=== PATIENT | male | born 1960 | race Caucasian/White ===

== ENCOUNTER 2021-12-26 12:45 | Emergency (ER) | payer OTHER, SELFPAY | END 2021-12-26 14:22 | disposition left against medical advice (07) | PROVIDERS: Emergency Provider Emergency Medicine; PCP Internal Medicine | DX: R10.9 Unspecified abdominal pain (principal) ==

== ENCOUNTER 2021-12-26 15:01 | Inpatient (IN) | payer OTHER, SELFPAY ==
--- NOTE | ~2021-12-26 | CT_ITS ---
EXAMINATION: CT ABDOMEN AND PELVIS WITHOUT CONTRAST CLINICAL INFORMATION: Severe abdominal pain, question diverticulitis COMPARISON: MRI lumbar spine and pelvis 11/12/2011 TECHNIQUE: Multidetector volumetric imaging was performed from the superior aspect of the liver through the pubic symphysis. Sagittal and coronal reformatted images were obtained on the technologist's workstation. This CT examination was performed using dose optimization techniques as appropriate, variously including the following: *Automated exposure control *Adjustment of mA and/or kV according to patient size (this includes techniques or standardized protocols for targeted exams where dose is matched to indication/reason for exam; i.e. extremities or head) *Use of iterative reconstruction technique DLP: 563 mGy-cm FINDINGS: LUNG BASES: Unremarkable. ABDOMINAL AND PELVIC WALL: Unremarkable. LIVER AND BILIARY TREE: Unremarkable. GALLBLADDER: Unremarkable. PANCREAS: Peripancreatic inflammatory fat stranding suggesting acute pancreatitis. No organized fluid collection. No pancreatic duct dilatation. Lack of intravenous contrast limits assessment for pancreatic enhancement. SPLEEN: Unremarkable. ADRENAL GLANDS: Unremarkable. KIDNEYS AND URETERS: Unremarkable. GASTROINTESTINAL TRACT: Wall thickening involving the third and fourth portions of the duodenum. Colonic diverticulosis without evidence of diverticulitis. Normal appendix. VASCULAR: Circumaortic left renal vein. LYMPH NODES/PERITONEUM: No lymphadenopathy. FREE FLUID: None. BLADDER: Unremarkable. PELVIC VISCERA: Unremarkable. OSSEOUS STRUCTURES: Serpiginous, sclerotic lesion in the left proximal femur possibly reflective of a enchondroma. CT/CT abdomen pelvis wo con IMPRESSION: Peripancreatic inflammatory fat stranding suggesting acute pancreatitis, recommend correlation with lipase. Lack of intravenous contrast limits assessment for pancreatic enhancement. No organized fluid collection. Wall thickening involving the third and fourth portions of the duodenum, presumed reactive in the setting of pancreatitis however if lipase is negative duodenitis would be an alternative primary consideration.
--- NOTE | ~2021-12-26 | XR_ITS ---
EXAMINATION: XR CHEST CLINICAL INFORMATION: Leukocytosis COMPARISON: Chest radiograph 05/30/2012 TECHNIQUE: Frontal view of the chest was obtained. FINDINGS: The heart and pulmonary vessels appear normal. The lungs are hypoinflated compared to the prior study. Some bibasilar atelectasis is seen. No consolidations, effusions or suspicious lung masses are present. XR/XR chest 1V IMPRESSION: No acute intrathoracic disease
[2021-12-26 15:43] VITALS: BP 141/104; PULSE 140; RESP 18; TEMP 37.2; O2SAT 99; BMI 26.3
[2021-12-26 20:10] LABS: MANUAL DIFF FLAG NO
[2021-12-26 20:12] LABS: Basophils Percent Auto 0.1 % (0-2); Eosinophils Percent Auto 0.1 % (0-4); Hematocrit 48.9 % (42.0-52.0); Hemoglobin 17.2 g/dl (14.0-18.0); Imm Gran Abs Auto 0.08 X10*3/uL (0.00-0.03); Imm Gran Pct Auto 0.4 % (0.0-0.4); Lymphocytes Absolute Auto 1.6 X10*3/uL (1.2-4.9); Lymphocytes Percent Auto 8.3 % (20-40); Mean Corpuscular HGB Conc 35.2 g/dl (31.0-36.0); Mean Corpuscular Hemoglobin 33.4 pg (27.0-33.0); Monocytes Absolute Auto 1.4 X10*3/uL (0.1-1.2); Monocytes Percent Auto 7.3 % (2-11); Neutrophils Absolute Auto 15.7 x10*3/uL (2.0-8.3); Neutrophils Percent Auto 83.8 % (45-73); Platelet Count 218 X10*3/uL (160-400); Red Blood Count 5.15 X10*6/uL (4.60-5.80); Red Cell Distribution Width 12.7 % (11.0-16.0); White Blood Count 18.7 X10*3/uL (4.8-10.8)
[2021-12-26 20:27] LABS: COVID-19 Test Negative (Negative); IDNOW Serial# 55D5AD1C
[2021-12-26 20:28] LABS: Alanine Aminotransferase 73 U/L (0-40); Albumin Level 4.7 g/dL (3.5-5.0); Alkaline Phosphatase 133 U/L (39-117); Anion Gap 14 (12-20); Aspartate Amino Transferase 39 U/L (5-37); Bilirubin Total 2.3 mg/dL (0.0-1.0); Blood Urea Nitrogen 12 mg/dL (9-16); Calcium 9.3 mg/dL (8.4-10.2); Carbon Dioxide 28 mmol/L (22-29); Chloride 100 mmol/L (96-108); Creatinine Clr Calc Pharmacy 91.5; Estimated Glomerular Filt Rate > 60; Glucose Random 122 mg/dL (60-115); Potassium 4.3 mmol/L (3.3-5.1); Sodium 138 mmol/L (135-145); Total Protein 8.6 g/dL (6.5-8.0)
[2021-12-26 20:35] LABS: Lactic Acid 2.6 mmol/L (0.5-2.0)
--- NOTE | 2021-12-26 20:48 | ED.ABDPAIN ---
HPI - Abdominal Pain General Chief Complaint: Abdominal Pain Stated Complaint: Abd pain Time Seen by Provider: 12/26/21 20:46 Source: patient Mode of arrival: ambulatory Limitations: no limitations History of Present Illness HPI narrative: Patient no significant abdominal complaints in the past except for umbilical hernia surgery been having diffuse abdominal pain for last 2 days feel bloated not moving his bowels or gas does not feel hungry feel nauseated vomited 2-3 times today never had similar following the past no fever or chills no history of ulcer or pancreas involvement no history of kidney stones no urinary complaints patient drinks beer 3-4 cans a day Related Data Home Medications Medication Instructions Recorded Confirmed albuterol sulfate 90 mcg/actuation 0 mcg inhalation 12/26/21 aerosol inhaler buprenorphine 8 mg-naloxone 2 mg 10 mg sublingual DAILY 12/26/21 sublingual film montelukast 10 mg tablet 10 mg PO BEDTIME 12/26/21 Allergies Allergy/AdvReac Type Severity Reaction Status Date / Time aspirin [ASPIRIN] Allergy Intermediate RASH/GI Unverified 12/26/21 14:30 UPSET Review of Systems Review of Systems Yes all other systems are reviewed and are negative [facility] Social History Social History Alcohol intake: current Alcohol intake frequency: 0-2 drinks per day Patient Tobacco Use Status: Current everyday Tobacco user Smoked in Last 30 Days: Yes Use of substances other than those prescribed or required for medical reasons: No Advance Directives: No Advance Directives Information Provided: No Physical Exam ED Vital Signs: Vital Signs - 24 hr 12/26/21 15:43 12/26/21 20:50 12/26/21 22:26 Temperature 99.0 F 98.0 F 99.1 F Pulse Rate 140 H 122 H 93 Respiratory Rate 18 24 H 18 Blood Pressure 141/104 H 175/109 H 176/101 H Pulse Oximetry 99 97 98 Oxygen Delivery Method Room Air Room Air Room Air BMI result Body Mass Index 26.3 Appearance: Alert. Oriented X3. No acute distress. Eyes: No pallor or icterus ENT: Pharynx normal. Oral Mucosa moist Neck: Normal inspection. Neck supple. CVS: Normal heart rate and rhythm. Pulses normal. Respiratory: No respiratory distress. Equal air entry bilateral, no wheezing/rales/rhonchi Abdomen: Gaseous distended hyperactive bowel sounds diffusely tender no guarding or rebound tenderness no mass palpable, no CVA tenderness Skin: Skin warm and dry. Normal skin color. Normal skin turgor. Extremities: No lower extremity edema. No calf tenderness Neuro: Oriented X 3. MDM - Abdominal Pain MDM Narrative Medical decision making narrative: Patient's CT scan showed acute pancreatitis likely from use of alcohol patient triglyceride level is normal CT scan showed inflamed pancreas without any significant fluid collections. Will admit patient for acute pancreatitis Lab Data Attestation: I reviewed the patient's lab results. Result diagrams: 12/26/21 20:04 12/26/21 20:04 Labs: Lab Results 12/26/21 12/26/21 12/26/21 Range/Units 20:04 20:04 20:04 WBC 18.7 H (4.8-10.8) X10*3/uL RBC 5.15 (4.60-5.80) X10*6/uL Hgb 17.2 (14.0-18.0) g/dl Hct 48.9 (42.0-52.0) % MCV 95.0 (80.0-98.0) fL MCH 33.4 H (27.0-33.0) pg MCHC 35.2 (31.0-36.0) g/dl RDW 12.7 (11.0-16.0) % Plt Count 218 (160-400) X10*3/uL MPV 10.0 (9.4-12.4) fL Immature Gran % (Auto) 0.4 (0.0-0.4) % Neut % (Auto) 83.8 H (45-73) % Lymph % (Auto) 8.3 L (20-40) % [place] % (Auto) 7.3 (2-11) % Eos % (Auto) 0.1 (0-4) % Baso % (Auto) 0.1 (0-2) % Lymph # (Auto) 1.6 (1.2-4.9) X10*3/uL [place] # (Auto) 1.4 H (0.1-1.2) X10*3/uL Eos # (Auto) 0.0 (0.0-0.4) X10*3/uL Baso # (Auto) 0.0 (0.0-0.2) X10*3/uL Abs Immat Gran (auto) 0.08 H (0.00-0.03) X10*3/uL Absolute Neuts (auto) 15.7 H (2.0-8.3) x10*3/uL Absolute Nucleated RBC 0.000 (0.0-0.012) X10*3/uL Nucleated RBC % (auto) 0.0 (0.0-0.2) /100WBC Sodium 138 (135-145) mmol/L Potassium 4.3 (3.3-5.1) mmol/L Chloride 100 (96-108) mmol/L Carbon Dioxide 28 (22-29) mmol/L Anion Gap 14 (12-20) BUN 12 (9-16) mg/dL Creatinine 0.83 (0.5-1.4) mg/dL Estim Creat Clear Calc 91.5 Estimated GFR > 60 Random Glucose 122 H (60-115) mg/dL Lactic Acid 2.6 H* (0.5-2.0) mmol/L Calcium 9.3 (8.4-10.2) mg/dL Total Bilirubin 2.3 H (0.0-1.0) mg/dL AST 39 H (5-37) U/L ALT 73 H (0-40) U/L Alkaline Phosphatase 133 H (39-117) U/L Total Protein 8.6 H (6.5-8.0) g/dL Albumin 4.7 (3.5-5.0) g/dL Triglycerides 135 mg/dL Lipase 192 H (8-78) U/L COVID-19 (FRANCISCO) (Negative) COVID-19 Clin Com 12/26/21 Range/Units 20:04 WBC (4.8-10.8) X10*3/uL RBC (4.60-5.80) X10*6/uL Hgb (14.0-18.0) g/dl Hct (42.0-52.0) % MCV (80.0-98.0) fL MCH (27.0-33.0) pg MCHC (31.0-36.0) g/dl RDW (11.0-16.0) % Plt Count (160-400) X10*3/uL MPV (9.4-12.4) fL Immature Gran % (Auto) (0.0-0.4) % Neut % (Auto) (45-73) % Lymph % (Auto) (20-40) % [place] % (Auto) (2-11) % Eos % (Auto) (0-4) % Baso % (Auto) (0-2) % Lymph # (Auto) (1.2-4.9) X10*3/uL [place] # (Auto) (0.1-1.2) X10*3/uL Eos # (Auto) (0.0-0.4) X10*3/uL Baso # (Auto) (0.0-0.2) X10*3/uL Abs Immat Gran (auto) (0.00-0.03) X10*3/uL Absolute Neuts (auto) (2.0-8.3) x10*3/uL Absolute Nucleated RBC (0.0-0.012) X10*3/uL Nucleated RBC % (auto) (0.0-0.2) /100WBC Sodium (135-145) mmol/L Potassium (3.3-5.1) mmol/L Chloride (96-108) mmol/L Carbon Dioxide (22-29) mmol/L Anion Gap (12-20) BUN (9-16) mg/dL Creatinine (0.5-1.4) mg/dL Estim Creat Clear Calc Estimated GFR Random Glucose (60-115) mg/dL Lactic Acid (0.5-2.0) mmol/L Calcium (8.4-10.2) mg/dL Total Bilirubin (0.0-1.0) mg/dL AST (5-37) U/L ALT (0-40) U/L Alkaline Phosphatase (39-117) U/L Total Protein (6.5-8.0) g/dL Albumin (3.5-5.0) g/dL Triglycerides mg/dL Lipase (8-78) U/L COVID-19 ([facility]ISCO) Negative (Negative) COVID-19 Clin Com See Note Discharge Plan Discharge Clinical Impression: Pancreatitis Patient Disposition: Admitted As Inpatient
[2021-12-26 20:50] VITALS: BP 175/109; PULSE 122; RESP 24; TEMP 36.7; O2SAT 97
[2021-12-26 21:13] LABS: Lipase 192 U/L (8-78)
[2021-12-26] MEDS: Piperacillin Sodium/Tazobactam 3.375 GM in 0.9 % Sodium Chloride 50 ML IV (21:24)
[2021-12-26] MEDS: 0.9 % Sodium Chloride 1,000 ML 999 ML IV ×2 (21:24→22:21)
--- NOTE | 2021-12-26 21:29 | PC.NURSE ---
Sending pt.'s BC x2 for primary RN Danni. BC labels unavailable. MD Megan notified to re-order cultures so labels are able to be printed
[2021-12-26 22:09] LABS: Reflex Lactate? Lactic Acid Added
[2021-12-26] MEDS: Ketorolac Tromethamine 30 MG/ML VIAL IVPUSH (22:18)
[2021-12-26 22:26] VITALS: BP 176/101; PULSE 93; RESP 18; TEMP 37.3; O2SAT 98
[2021-12-27 00:21] LABS: Triglycerides 135 mg/dL
--- NOTE | 2021-12-27 00:49 | PM.IMHP ---
History of Present Illness Date of Service: 12/27/21 Chief Complaint: Abdominal pain 61-year-old male with a past medical history of asthma, alcohol abuse, history of opiate dependence on Suboxone presented to the hospital today with a chief complaint of abdominal pain. Patient reports that over the past 2 days he has been having abdominal pain, diffuse in nature, associated nausea; denies any vomiting or diarrhea. Denies any fever chills cough or sputum production. Denies any urinary symptoms. Reports he has been drinking 4-5 beers of alcohol every day. Last drink was on last Saturday. Denies any concerns for withdrawal. Denies any prior history of withdrawals. Review of all other systems is negative except mentioned above ER course: Per ER team patient noted to have diffuse abdominal tenderness; CT scan showed pancreatitis; also noted to have mildly elevated lipase. Admitted for further management. [facility] Pertinent family history: Parents Social History Alcohol intake: current Alcohol intake frequency: 0-2 drinks per day Patient Tobacco Use Status: Current everyday Tobacco user Smoked in Last 30 Days: Yes Use of substances other than those prescribed or required for medical reasons: No Advance Directives: No Advance Directives Information Provided: No Meds Allergies Allergy/AdvReac Type Severity Reaction Status Date / Time aspirin [ASPIRIN] Allergy Intermediate RASH/GI Unverified 12/26/21 14:30 UPSET Home Medications Medication Instructions Recorded Confirmed Last Taken Type albuterol sulfate 90 mcg/actuation 0 mcg inhalation 12/26/21 Unknown History aerosol inhaler buprenorphine 8 mg-naloxone 2 mg 10 mg sublingual DAILY 12/26/21 Unknown History sublingual film montelukast 10 mg tablet 10 mg PO BEDTIME 12/26/21 Unknown History Physical Exam Vital Signs and Narrative: Vital Signs: Last Vital Signs Temp 99.1 F 12/26/21 22:26 Pulse 93 12/26/21 22:26 Resp 18 12/26/21 22:26 BP 176/101 H 12/26/21 22:26 Pulse Ox 98 12/26/21 22:26 O2 Del Method 12/26/21 22:26 BMI result Body Mass Index 26.3 Gen: Appears be in no acute distress HEENT: NCAT, Moist mucosa. Pulmonary: Vesicular breath sounds, fair air entry CVS: Normal S1-S2 Abdomen: BS+, Soft, mildly tender diffusely; no guarding no rigidity Extremities: Warm well perfused Neuro: Alert and awake. Results Labs CBC and Chem 7: 12/26/21 20:04 12/26/21 20:04 Labs: Laboratory Results - last 24 hr 12/26/21 12/26/21 12/26/21 20:04 20:04 20:04 MCV 95.0 MCH 33.4 H MCHC 35.2 RDW 12.7 Plt Count 218 MPV 10.0 Immature Gran % (Auto) 0.4 Neut % (Auto) 83.8 H Lymph % (Auto) 8.3 L [place] % (Auto) 7.3 Eos % (Auto) 0.1 Baso % (Auto) 0.1 Lymph # (Auto) 1.6 [place] # (Auto) 1.4 H Eos # (Auto) 0.0 Baso # (Auto) 0.0 Abs Immat Gran (auto) 0.08 H Absolute Neuts (auto) 15.7 H Absolute Nucleated RBC 0.000 Nucleated RBC % (auto) 0.0 Anion Gap 14 Estim Creat Clear Calc 91.5 Estimated GFR > 60 Random Glucose 122 H Lactic Acid 2.6 H* Calcium 9.3 Total Bilirubin 2.3 H AST 39 H ALT 73 H Alkaline Phosphatase 133 H Total Protein 8.6 H Albumin 4.7 Triglycerides 135 Lipase 192 H COVID-19 ([facility]IS[facility]) COVID-19 Clin Com 12/26/21 20:04 MCV MCH MCHC RDW Plt Count MPV Immature Gran % (Auto) Neut % (Auto) Lymph % (Auto) [place] % (Auto) Eos % (Auto) Baso % (Auto) Lymph # (Auto) [place] # (Auto) Eos # (Auto) Baso # (Auto) Abs Immat Gran (auto) Absolute Neuts (auto) Absolute Nucleated RBC Nucleated RBC % (auto) Anion Gap Estim Creat Clear Calc Estimated GFR Random Glucose Lactic Acid Calcium Total Bilirubin AST ALT Alkaline Phosphatase Total Protein Albumin Triglycerides Lipase COVID-19 ([facility]) Negative COVID-19 Clin Com See Note Imaging Radiologist's Impressions: Impressions Abdomen/Pelvis CT 12/26/21 21:23 IMPRESSION: Peripancreatic inflammatory fat stranding suggesting acute pancreatitis, recommend correlation with lipase. Lack of intravenous contrast limits assessment for pancreatic enhancement. No organized fluid collection. Wall thickening involving the third and fourth portions of the duodenum, presumed reactive in the setting of pancreatitis however if lipase is negative duodenitis would be an alternative primary consideration. Chest X-Ray 12/27/21 00:23 IMPRESSION: No acute intrathoracic disease Assessment and Plan (1) Pancreatitis: Status: Acute Plan 61M with Hx Alcohol abuse, Asthma, Opiate dependence p/w Nausea/vomiting/Abd paiin. Noted Elevated Lipase, CT abd- showed pancreatitis. Pancreatitis: Likely in the setting of Alcohol use NPO IV Fluids Pain control Alcohol abuse:CIWA protocol with Ativan. Thiamine, Folate, Multivitamins. Transaminitis: Likely from alcohol abuse. Trend Liver enzymes. Will also obtian hepatitis panel. Hx Opiate abuse: pt on Suboxone. Addiction medicine consult. DVT ppx: [facility] Code Status: Full code. Quality Stroke Does the patient have a stroke diagnosis?: No VTE Prior VTE?: No VTE Risk Level:: Medical - moderate - high VTE Device Contraindication: Treatment Not Indicated VTE Drug Contraindication: N/A - Med Ordered
[2021-12-27 01:42] VITALS: BP 162/93; PULSE 96; RESP 18; TEMP 37.3; O2SAT 99
[2021-12-27 01:49] LABS: ~Lactic Acid-LAB USE ONLY 2.1 mmol/L (0.5-2.0)
[2021-12-27] MEDS: HYDROmorphone HCl 1 MG/ML SYRINGE 0.5 MG IVPUSH ×3 (02:40→15:22)
[2021-12-27] MEDS: Heparin Sodium,Porcine 5,000 UNIT/ML VIAL 5000 UNIT SUBCUT (02:40)
[2021-12-27 03:24] LABS: Reflex Lactate? 2 Y
[2021-12-27] MEDS: Dextrose 5 % and 0.45 % NaCl 1,000 ML 80 ML IVCONT (03:30)
[2021-12-27 04:00] VITALS: BP 139/84; PULSE 97; RESP 18; TEMP 36.7; O2SAT 98
[2021-12-27 04:17] LABS: Basophils Percent Auto 0.1 % (0-2); Eosinophils Percent Auto 0.1 % (0-4); Hematocrit 41.8 % (42.0-52.0); Hemoglobin 14.6 g/dl (14.0-18.0); Imm Gran Abs Auto 0.08 X10*3/uL (0.00-0.03); Imm Gran Pct Auto 0.5 % (0.0-0.4); Lymphocytes Absolute Auto 1.4 X10*3/uL (1.2-4.9); Lymphocytes Percent Auto 9.2 % (20-40); MANUAL DIFF FLAG NO; Mean Corpuscular HGB Conc 34.9 g/dl (31.0-36.0); Mean Corpuscular Hemoglobin 33.3 pg (27.0-33.0); Mean Corpuscular Volume 95.2 fL (80.0-98.0); Monocytes Absolute Auto 1.5 X10*3/uL (0.1-1.2); Monocytes Percent Auto 9.7 % (2-11); Neutrophils Absolute Auto 12.3 x10*3/uL (2.0-8.3); Neutrophils Percent Auto 80.4 % (45-73); Platelet Count 162 X10*3/uL (160-400); Red Blood Count 4.39 X10*6/uL (4.60-5.80); Red Cell Distribution Width 12.6 % (11.0-16.0); White Blood Count 15.3 X10*3/uL (4.8-10.8)
[2021-12-27 04:26] LABS: ~Lactic Acid-LAB USE ONLY 0.8 mmol/L (0.5-2.0)
[2021-12-27 04:29] LABS: Anion Gap 10 (12-20); Blood Urea Nitrogen 9 mg/dL (9-16); Calcium 8.4 mg/dL (8.4-10.2); Carbon Dioxide 27 mmol/L (22-29); Chloride 105 mmol/L (96-108); Creatinine Clr Calc Pharmacy 104.1; Estimated Glomerular Filt Rate > 60; Glucose Random 116 mg/dL (60-115); Potassium 3.9 mmol/L (3.3-5.1); Sodium 138 mmol/L (135-145)
[2021-12-27 05:31] LABS: HBS Num1 > 1000.00 mIU/mL (0-7.99); HBsAGNum1 0.19 S/CO (0.00-0.99); Hepatitis B Surface Antigen Negative (Negative); ~HepC Num1 14.31 S/CO (0.00-0.79); ~Hepatitis B Surface Antibody REACTIVE (Nonreactive); ~Hepatitis C Antibody Reactive (Nonreactive)
[2021-12-27 06:16] LABS: Hepatitis A Antibody IgM 0.76 Index (0-0.79); ~Hepatitis A Antibody IgM Nonreactive (Nonreactive)
[2021-12-27 06:17] LABS: HBc Num2 7.92 S/CO; HBc Num3 7.96 S/CO; Hepatitis B Core Antibody Reactive (Nonreactive)
--- NOTE | 2021-12-27 07:09 | PHA.MEDREC ---
Pharmacy Consult ? Medication Reconciliation Pharmacy has completed the medication reconciliation.
[2021-12-27 07:53] VITALS: BP 180/97; PULSE 109; RESP 20; TEMP 37; O2SAT 97
[2021-12-27] MEDS: Famotidine 20 MG TABLET PO ×2 (09:00→20:29)
[2021-12-27] MEDS: Folic Acid 1 MG TABLET PO (09:00)
[2021-12-27] MEDS: Enoxaparin Sodium 40 MG/0.4 ML SYRINGE SUBCUT (09:00)
[2021-12-27] MEDS: Multivitamin TABLET 1 TAB PO (09:00)
[2021-12-27] MEDS: Thiamine HCL 100 MG TABLET PO (09:00)
[2021-12-27] MEDS: 0.9 % Sodium Chloride Flush 3 ML SYRINGE IVFLUSH ×3 (09:01→20:30)
[2021-12-27] MEDS: Lactated Ringers 1,000 ML 150 ML IVCONT ×3 (09:01→21:33)
--- NOTE | 2021-12-27 09:28 | MHC.CM.PN ---
CM met with Patient at bedside and addressed IMM with him, providing him with the original and placing a copy on the chart. Patient lives alone in an apartment and he required no DME [employer] APPR[employer]. Patient receives his Suboxone through [facility] ([address] in [place]) and he has a history of Opiate Dependence and ETOH. Patient may benefit from a care Team Consult. Home/resume Suboxone is the goal and CM has initiated and will follow for dc planning.PCP is DR. Gabriel Burrows and Patient received [employer]/COVID VAX and [employer] Booster X1.
[2021-12-27 11:41] VITALS: BP 181/96; PULSE 92; RESP 18; TEMP 37.2; O2SAT 97
--- NOTE | 2021-12-27 12:38 | P.PNIM_ITS ---
Subjective Subjective Date of Service: 12/27/21 Interval History: cc: abd pain interval history: ongoing abd pain, wants to advance to clears Cardiovascular Cardiovascular: Reports no additional cardiovascular complaints Respiratory Respiratory: Reports no additional respiratory complaints Physical Exam Vital Signs: Vital Signs: Last Vital Signs Temp 98.9 F 12/27/21 11:41 Pulse 92 12/27/21 11:41 Resp 18 12/27/21 11:41 BP 181/96 H 12/27/21 11:41 Pulse Ox 97 12/27/21 11:41 O2 Del Method 12/27/21 11:41 BMI result Body Mass Index 26.3 General: AO X 3, no acute distress Resp: CTA bilateral, no accessory muscles used CVS: S1,S2,RRR GI: soft, epigastric tender, non distended Neuro: motor grossly intact, alert Psych: appropriate affect, appropriate insight Objective Data Active Medications Acetaminophen (Acetaminophen 325 Mg Tablet) 650 mg PO Q6H PRN PRN Reason: Pain, Mild (Pain Scale 1-3) Albuterol/Ipratropium (Albuterol/Iprat 2.5/0.5mg 3 Ml Ampul.Neb) 3 ml INHALE RQ4H PRN PRN Reason: Shortness of Breath/Wheezing Buprenorphine/Naloxone (Buprenorphine/Naloxone 8/2 Mg Film) 1 film SUBLINGUAL DAILY [facility] Enoxaparin Sodium (Enoxaparin Sodium 40 Mg/0.4 Ml Syringe) 40 mg SUBCUT Q24H [facility] Last Admin: 12/27/21 09:00 Dose: 40 mg Documented By: GALDINO Famotidine (Famotidine 20 Mg Tablet) 20 mg PO BID [facility] Last Admin: 12/27/21 09:00 Dose: 20 mg Documented By: GALDINO Folic Acid (Folic Acid 1 Mg Tablet) 1 mg PO DAILY [facility] Stop: 12/30/21 08:59 Last Admin: 12/27/21 09:00 Dose: 1 mg Documented By: GALDINO Hydromorphone HCl (Hydromorphone Hcl 1 Mg/Ml Syringe) 0.5 mg IVPUSH Q4H PRN; Protocol PRN Reason: Pain, Severe (Pain Scale 7-10) Last Admin: 12/27/21 09:15 Dose: 0.5 mg Documented By: GALDINO Lactated Ringer's (Lr) 1,000 mls @ 150 mls/hr IVCONT .Q6H40M [facility] Last Admin: 12/27/21 09:01 Dose: 150 mls/hr Documented By: GALDINO Lorazepam (Lorazepam 1 Mg Tablet) 1 mg PO Q4H PRN PRN Reason: Breakthrough alcohol withdrawa Stop: 12/31/21 00:46 Melatonin (Melatonin 3 Mg Tablet) 6 mg PO BEDTIME PRN PRN Reason: Insomnia Montelukast Sodium (Montelukast Sodium 10 Mg Tablet) 10 mg PO BEDTIME OPAL Multivitamins/Vitamin C (Multivitamin Tablet) 1 tab PO DAILY [facility] Stop: 12/30/21 08:59 Last Admin: 12/27/21 09:00 Dose: 1 tab Documented By: GALDINO Senna (Sennosides 8.6 Mg Tablet) 17.2 mg PO BEDTIME PRN PRN Reason: Constipation Sodium Chloride (0.9 % Sodium Chloride Flush 3 Ml Syringe) 3 ml IVFLUSH QSHIFT [facility] Last Admin: 12/27/21 09:01 Dose: 3 ml Documented By: GALDINO Thiamine HCl (Thiamine Hcl 100 Mg Tablet) 100 mg PO DAILY [facility] Stop: 12/30/21 08:59 Last Admin: 12/27/21 09:00 Dose: 100 mg Documented By: GALDINO Labs CBC & Chem 7: 12/27/21 04:03 12/27/21 04:03 Labs: Laboratory Results - last 24 hr 12/26/21 12/26/21 12/26/21 20:04 20:04 20:04 MCV 95.0 MCH 33.4 H MCHC 35.2 RDW 12.7 Plt Count 218 MPV 10.0 Immature Gran % (Auto) 0.4 Neut % (Auto) 83.8 H Lymph % (Auto) 8.3 L [place] % (Auto) 7.3 Eos % (Auto) 0.1 Baso % (Auto) 0.1 Lymph # (Auto) 1.6 [place] # (Auto) 1.4 H Eos # (Auto) 0.0 Baso # (Auto) 0.0 Abs Immat Gran (auto) 0.08 H Absolute Neuts (auto) 15.7 H Absolute Nucleated RBC 0.000 Nucleated RBC % (auto) 0.0 Anion Gap 14 Estim Creat Clear Calc 91.5 Estimated GFR > 60 Random Glucose 122 H Lactic Acid 2.6 H* Lactic Acid F/U @ 2Hr Lactic Acid F/U @ 4Hr Calcium 9.3 Total Bilirubin 2.3 H AST 39 H ALT 73 H Alkaline Phosphatase 133 H Total Protein 8.6 H Albumin 4.7 Triglycerides 135 Lipase 192 H COVID-19 ([facility]) COVID-19 Clin Com Hepatitis A IgM Ab Hep Bs Antigen Hep Bs Antibody Hep B Core Total Ab Hep B Core IgM Ab Hepatitis C Ab (EIA) 12/26/21 12/27/21 12/27/21 20:04 01:22 04:03 MCV 95.2 MCH 33.3 H MCHC 34.9 RDW 12.6 Plt Count 162 D MPV 10.0 Immature Gran % (Auto) 0.5 H Neut % (Auto) 80.4 H Lymph % (Auto) 9.2 L [place] % (Auto) 9.7 Eos % (Auto) 0.1 Baso % (Auto) 0.1 Lymph # (Auto) 1.4 [place] # (Auto) 1.5 H Eos # (Auto) 0.0 Baso # (Auto) 0.0 Abs Immat Gran (auto) 0.08 H Absolute Neuts (auto) 12.3 H Absolute Nucleated RBC 0.000 Nucleated RBC % (auto) 0.0 Anion Gap Estim Creat Clear Calc Estimated GFR Random Glucose Lactic Acid Lactic Acid F/U @ 2Hr 2.1 H* Lactic Acid F/U @ 4Hr Calcium Total Bilirubin AST ALT Alkaline Phosphatase Total Protein Albumin Triglycerides Lipase COVID-19 ([place]) Negative COVID-19 Clin Com See Note Hepatitis A IgM Ab Hep Bs Antigen Hep Bs Antibody Hep B Core Total Ab Hep B Core IgM Ab Hepatitis C Ab (EIA) 12/27/21 12/27/21 12/27/21 04:03 04:03 04:03 MCV MCH MCHC RDW Plt Count MPV Immature Gran % (Auto) Neut % (Auto) Lymph % (Auto) [place] % (Auto) Eos % (Auto) Baso % (Auto) Lymph # (Auto) [place] # (Auto) Eos # (Auto) Baso # (Auto) Abs Immat Gran (auto) Absolute Neuts (auto) Absolute Nucleated RBC Nucleated RBC % (auto) Anion Gap 10 L Estim Creat Clear Calc 104.1 Estimated GFR > 60 Random Glucose 116 H Lactic Acid Lactic Acid F/U @ 2Hr Lactic Acid F/U @ 4Hr 0.8 Calcium 8.4 D Total Bilirubin AST ALT Alkaline Phosphatase Total Protein Albumin Triglycerides Lipase COVID-19 ([place]ISCO) COVID-19 Clin Com Hepatitis A IgM Ab Nonreactive Hep Bs Antigen Negative Hep Bs Antibody REACTIVE Hep B Core Total Ab Reactive Hep B Core IgM Ab Cancelled Hepatitis C Ab (EIA) Reactive H Assessment and Plan (1) Pancreatitis: Status: Acute Plan 61M presented with abdominal pain Severe Sirs (no infection) due to etoh pancreatitis change to LR, continue pain control, advance to clears, monitor labs alcohol dependence monitor [facility] hcv outpatient follow up opiate dependnece suboxone hypertension possibly pain related, monitor for now dvt prophyalxis - lovenox full code reason for continued hospitalization:ongoing iv opaites and ivf for pancreatitis Quality Stroke Does the patient have a stroke diagnosis?: No VTE Prior VTE?: No VTE Risk Level:: Medical - moderate - high VTE Device Contraindication: Treatment Not Indicated VTE Drug Contraindication: N/A - Med Ordered
[2021-12-27] MEDS: Buprenorphine/Naloxone 8/2 mg FILM 1 FILM SUBLINGUAL (13:07)
[2021-12-27 15:34] VITALS: BP 160/98; PULSE 81; RESP 20; TEMP 36.1; O2SAT 97
[2021-12-27 19:23] VITALS: BP 180/109; PULSE 87; RESP 20; TEMP 38; O2SAT 98
[2021-12-27] MEDS: Acetaminophen 325 MG TABLET 650 MG PO (20:29)
[2021-12-27] MEDS: Montelukast Sodium 10 MG TABLET PO (20:29)
[2021-12-27] MEDS: Melatonin 3 MG TABLET 6 MG PO (20:30)
[2021-12-28] VITALS (7 sets, daily range): BP systolic 142–189; BP diastolic 82–102; PULSE 75–114; RESP 16–20; TEMP 36.7–37.1; O2SAT 94–98
[2021-12-28] MEDS: Lactated Ringers 1,000 ML 150 ML IVCONT ×4 (03:35→21:36)
[2021-12-28 06:54] LABS: Hematocrit 39.8 % (42.0-52.0); Hemoglobin 14.1 g/dl (14.0-18.0); Mean Corpuscular HGB Conc 35.4 g/dl (31.0-36.0); Mean Corpuscular Volume 95.9 fL (80.0-98.0); Mean Platelet Volume 10.6 fL (9.4-12.4); Platelet Count 162 X10*3/uL (160-400); Red Blood Count 4.15 X10*6/uL (4.60-5.80); Red Cell Distribution Width 12.3 % (11.0-16.0); White Blood Count 10.2 X10*3/uL (4.8-10.8)
[2021-12-28 07:19] LABS: Alanine Aminotransferase 44 U/L (0-40); Albumin Level 3.6 g/dL (3.5-5.0); Alkaline Phosphatase 117 U/L (39-117); Anion Gap 12 (12-20); Aspartate Amino Transferase 33 U/L (5-37); Bilirubin Direct 0.9 mg/dL (0.0-0.5); Bilirubin Total 1.5 mg/dL (0.0-1.0); Blood Urea Nitrogen 5 mg/dL (9-16); Calcium 8.6 mg/dL (8.4-10.2); Carbon Dioxide 26 mmol/L (22-29); Chloride 104 mmol/L (96-108); Creatinine Clr Calc Pharmacy 113.4; Estimated Glomerular Filt Rate > 60; Glucose Fasting 95 mg/dL (60-99); Magnesium 1.9 mg/dL (1.6-2.6); Potassium 3.6 mmol/L (3.3-5.1); Sodium 138 mmol/L (135-145); Total Protein 6.6 g/dL (6.5-8.0)
[2021-12-28] MEDS: Buprenorphine/Naloxone 8/2 mg FILM 1 FILM SUBLINGUAL (09:11)
[2021-12-28] MEDS: Folic Acid 1 MG TABLET PO (09:11)
[2021-12-28] MEDS: Thiamine HCL 100 MG TABLET PO (09:11)
[2021-12-28] MEDS: Multivitamin TABLET 1 TAB PO (09:11)
[2021-12-28] MEDS: Famotidine 20 MG TABLET PO ×2 (09:11→20:04)
[2021-12-28] MEDS: HYDROmorphone HCl 1 MG/ML SYRINGE 0.5 MG IVPUSH ×2 (09:21→20:08)
--- NOTE | 2021-12-28 09:38 | P.PNIM_ITS ---
Subjective Subjective Date of Service: 12/28/21 Interval History: cc: abd pain interval history: ongoing abd pain, wants to stay with clears Cardiovascular Cardiovascular: Reports no additional cardiovascular complaints Respiratory Respiratory: Reports no additional respiratory complaints Physical Exam Vital Signs: Vital Signs: Last Vital Signs Temp 98.2 F 12/28/21 07:26 Pulse 77 12/28/21 07:26 Resp 16 12/28/21 07:26 BP 189/102 H 12/28/21 07:26 Pulse Ox 96 12/28/21 07:26 O2 Del Method 12/28/21 07:26 BMI result Body Mass Index 26.3 General: AO X 3, no acute distress Resp: CTA bilateral, no accessory muscles used CVS: S1,S2,RRR GI: soft, epigastric tender, non distended Neuro: motor grossly intact, alert Psych: appropriate affect, appropriate insight Objective Data Active Medications Acetaminophen (Acetaminophen 325 Mg Tablet) 650 mg PO Q6H PRN PRN Reason: Pain, Mild (Pain Scale 1-3) Last Admin: 12/27/21 20:29 Dose: 650 mg Documented By: LINDA Albuterol/Ipratropium (Albuterol/Iprat 2.5/0.5mg 3 Ml Ampul.Neb) 3 ml INHALE RQ4H PRN PRN Reason: Shortness of Breath/Wheezing Buprenorphine/Naloxone (Buprenorphine/Naloxone 8/2 Mg Film) 1 film SUBLINGUAL DAILY [facility] Last Admin: 12/28/21 09:11 Dose: 1 film Documented By: LINDA Enoxaparin Sodium (Enoxaparin Sodium 40 Mg/0.4 Ml Syringe) 40 mg SUBCUT Q24H [facility] Last Admin: 12/27/21 09:00 Dose: 40 mg Documented By: GALDINO Famotidine (Famotidine 20 Mg Tablet) 20 mg PO BID [facility] Last Admin: 12/28/21 09:11 Dose: 20 mg Documented By: LINDA Folic Acid (Folic Acid 1 Mg Tablet) 1 mg PO DAILY [facility] Stop: 12/30/21 08:59 Last Admin: 12/28/21 09:11 Dose: 1 mg Documented By: LINDA Hydromorphone HCl (Hydromorphone Hcl 1 Mg/Ml Syringe) 0.5 mg IVPUSH Q4H PRN; Protocol PRN Reason: Pain, Severe (Pain Scale 7-10) Last Admin: 12/28/21 09:21 Dose: 0.5 mg Documented By: LINDA Lactated Ringer's (Lr) 1,000 mls @ 150 mls/hr IVCONT .Q6H40M OPAL Last Admin: 12/28/21 03:35 Dose: 150 mls/hr Documented By: LINDA Lorazepam (Lorazepam 1 Mg Tablet) 1 mg PO Q4H PRN PRN Reason: Breakthrough alcohol withdrawa Stop: 12/31/21 00:46 Melatonin (Melatonin 3 Mg Tablet) 6 mg PO BEDTIME PRN PRN Reason: Insomnia Last Admin: 12/27/21 20:30 Dose: 6 mg Documented By: LINDA Montelukast Sodium (Montelukast Sodium 10 Mg Tablet) 10 mg PO BEDTIME [facility] Last Admin: 12/27/21 20:29 Dose: 10 mg Documented By: LINDA Multivitamins/Vitamin C (Multivitamin Tablet) 1 tab PO DAILY [facility] Stop: 12/30/21 08:59 Last Admin: 12/28/21 09:11 Dose: 1 tab Documented By: LINDA Senna (Sennosides 8.6 Mg Tablet) 17.2 mg PO BEDTIME PRN PRN Reason: Constipation Sodium Chloride (0.9 % Sodium Chloride Flush 3 Ml Syringe) 3 ml IVFLUSH QSHIFT OPAL Last Admin: 12/28/21 09:11 Dose: Not Given Documented By: LINDA Non-Admin Reason: IV Running Thiamine HCl (Thiamine Hcl 100 Mg Tablet) 100 mg PO DAILY [facility] Stop: 12/30/21 08:59 Last Admin: 12/28/21 09:11 Dose: 100 mg Documented By: LINDA Labs CBC & Chem 7: 12/28/21 05:27 12/28/21 05:27 Labs: Laboratory Results - last 24 hr 12/28/21 12/28/21 05:27 05:27 MCV 95.9 MCH 34.0 H MCHC 35.4 RDW 12.3 Plt Count 162 MPV 10.6 Absolute Nucleated RBC 0.000 Nucleated RBC % (auto) 0.0 Anion Gap 12 Estim Creat Clear Calc 113.4 Estimated GFR > 60 Fasting Glucose 95 Calcium 8.6 Magnesium 1.9 Total Bilirubin 1.5 H Direct Bilirubin 0.9 H AST 33 ALT 44 H Alkaline Phosphatase 117 Total Protein 6.6 D Albumin 3.6 D Microbiology Microbiology Results: Microbiology 12/26/21 21:58 Blood Culture - Preliminary Blood - Venous No growth after 24 hours. 12/26/21 20:04 Blood Culture - Preliminary Blood - Venous No growth after 24 hours. Assessment and Plan (1) Pancreatitis: Status: Acute Plan 61M presented with abdominal pain Severe Sirs (no infection) due to etoh pancreatitis continue LR, continue pain control, continue clears, monitor labs alcohol dependence monitor ciwa hcv outpatient follow up opiate dependence suboxone hypertension possibly pain related, monitor for now dvt prophyalxis - lovenox full code reason for continued hospitalization:ongoing iv opaites and ivf for pancreatitis Quality Stroke Does the patient have a stroke diagnosis?: No VTE Prior VTE?: No VTE Risk Level:: Medical - moderate - high VTE Device Contraindication: Treatment Not Indicated VTE Drug Contraindication: N/A - Med Ordered
[2021-12-28] MEDS: Enoxaparin Sodium 40 MG/0.4 ML SYRINGE SUBCUT (11:28)
[2021-12-28] MEDS: Acetaminophen 325 MG TABLET 650 MG PO (15:48)
[2021-12-28] MEDS: Montelukast Sodium 10 MG TABLET PO (20:03)
[2021-12-28] MEDS: Melatonin 3 MG TABLET 6 MG PO (20:04)
[2021-12-29] MEDS: Lactated Ringers 1,000 ML 150 ML IVCONT (03:11)
[2021-12-29 03:51] VITALS: BP 138/80; PULSE 85; RESP 18; TEMP 36.8; O2SAT 98
[2021-12-29 07:18] LABS: Hematocrit 37.6 % (42.0-52.0); Mean Corpuscular HGB Conc 34.6 g/dl (31.0-36.0); Mean Corpuscular Hemoglobin 33.7 pg (27.0-33.0); Mean Corpuscular Volume 97.4 fL (80.0-98.0); Mean Platelet Volume 10.2 fL (9.4-12.4); Platelet Count 168 X10*3/uL (160-400); Red Blood Count 3.86 X10*6/uL (4.60-5.80); Red Cell Distribution Width 12.1 % (11.0-16.0); White Blood Count 7.3 X10*3/uL (4.8-10.8)
[2021-12-29 07:38] LABS: Anion Gap 11 (12-20); Blood Urea Nitrogen 4 mg/dL (9-16); Calcium 8.7 mg/dL (8.4-10.2); Carbon Dioxide 28 mmol/L (22-29); Chloride 102 mmol/L (96-108); Creatinine Clr Calc Pharmacy 113.4; Estimated Glomerular Filt Rate > 60; Glucose Fasting 93 mg/dL (60-99); Potassium 4.2 mmol/L (3.3-5.1); Sodium 137 mmol/L (135-145)
[2021-12-29 07:39] VITALS: BP 140/89; PULSE 66; RESP 17; TEMP 36.6; O2SAT 98
[2021-12-29] MEDS: Multivitamin TABLET 1 TAB PO (08:44)
[2021-12-29] MEDS: Enoxaparin Sodium 40 MG/0.4 ML SYRINGE SUBCUT (08:44)
[2021-12-29] MEDS: Thiamine HCL 100 MG TABLET PO (08:44)
[2021-12-29] MEDS: Folic Acid 1 MG TABLET PO (08:44)
[2021-12-29] MEDS: Famotidine 20 MG TABLET PO (08:44)
[2021-12-29] MEDS: 0.9 % Sodium Chloride Flush 3 ML SYRINGE IVFLUSH (08:45)
[2021-12-29] MEDS: Buprenorphine/Naloxone 8/2 mg FILM 1 FILM SUBLINGUAL (08:45)
[2021-12-29] MEDS: HYDROmorphone HCl 1 MG/ML SYRINGE 0.5 MG IVPUSH (08:47)
[2021-12-29 11:26] VITALS: BP 119/58; PULSE 74; RESP 17; TEMP 37.2; O2SAT 98
--- NOTE | 2021-12-29 14:26 | PM.DS ---
DS: Providers Provider Date of Service: 12/29/21 Date of admission: 12/27/21 00:47 Primary care physician: Gabriel Burrows III, MD Consults: 12/27/21 00:49 Addiction Medicine Routine Consulting Provider: Leonela Vincent Reason for consultation: pt on suboxone DS: Diagnosis Discharge Diagnosis (1) Pancreatitis: Status: Acute DS: Summary Hospital Course Hospital Course: from initial hpi: Chief Complaint: Abdominal pain 61-year-old male with a past medical history of asthma, alcohol abuse, history of opiate dependence on Suboxone presented to the hospital today with a chief complaint of abdominal pain.? Patient reports that over the past 2 days he has been having abdominal pain, diffuse in nature, associated nausea; denies any vomiting or diarrhea.? Denies any fever chills cough or sputum production.? Denies any urinary symptoms.? Reports he has been drinking 4-5 beers of alcohol every day.? Last drink was on last Saturday.? Denies any concerns for withdrawal.? Denies any prior history of withdrawals.? Review of all other systems is negative except mentioned above ER course: Per ER team patient noted to have diffuse abdominal tenderness; CT scan showed pancreatitis; also noted to have mildly elevated lipase.? Admitted for further management. hospital course: Patient was admitted for severe SIRS due to acute alcoholic pancreatitis. He was given IV fluids and pain control. His diet was slowly advanced at point where he was tolerating solid diet on day of discharge without any abdominal pain. He should remain abstinent from alcohol. For his alcohol dependency was monitored with [facility] and did not go into withdrawal. For is opiate dependence he was given Suboxone. For his hypertension this was likely pain related and at time of discharge blood pressure is normal. Time Spent with Patient Time attestation: Total time spent providing and/or coordinating discharge services: Discharge coordination time: Greater than 30 minutes Quality: Safe Use of Opioids Does Pt have an Active Cancer Diagnosis on the Problem List?: No Quality: Stroke Does the patient have a stroke diagnosis?: No Physical Exam Vital Signs: Vital Signs: Last Vital Signs Temp 98.9 F 12/29/21 11:26 Pulse 74 12/29/21 11:26 Resp 17 12/29/21 11:26 BP 119/58 L 12/29/21 11:26 Pulse Ox 98 12/29/21 11:26 O2 Del Method 12/29/21 11:26 BMI result Body Mass Index 26.3 General: AO X 3, no acute distress Resp: CTA bilateral, no accessory muscles used CVS: S1,S2,RRR GI: soft, non tender, non distended Neuro: motor grossly intact, alert Psych: appropriate affect, appropriate insight DS: Data Data Completed and Pending Labs on day of discharge: Laboratory Results - last 24 hr 12/29/21 12/29/21 05:58 05:58 WBC 7.3 RBC 3.86 L Hgb 13.0 L Hct 37.6 L MCV 97.4 MCH 33.7 H MCHC 34.6 RDW 12.1 Plt Count 168 MPV 10.2 Absolute Nucleated RBC 0.000 Nucleated RBC % (auto) 0.0 Sodium 137 Potassium 4.2 Chloride 102 Carbon Dioxide 28 Anion Gap 11 L BUN 4 L Creatinine 0.67 Estim Creat Clear Calc 113.4 Estimated GFR > 60 Fasting Glucose 93 Calcium 8.7 Preliminary micro results at discharge 12/26/21 21:58 Blood Culture - Preliminary Blood - Venous No growth after 48 hours. 12/26/21 20:04 Blood Culture - Preliminary Blood - Venous No growth after 48 hours. Discharge Plan Discharge Patient Disposition: Home, Self-Care Discharge Diagnosis: pancreatitis Referrals: Gabriel Burrows III, MD [Primary Care Provider] - 1 Week Discharge Medications: Continued buprenorphine-naloxone 8-2 mg film 1 film sublingual DAILY albuterol sulfate 90 mcg/actuation HFA aerosol inhaler 2 inh inhalation QID PRN (Reason: Wheezing) montelukast 10 mg tablet 10 mg PO BEDTIME Discharge Orders: Discharge Order (Routine); Ordered 12/29/21 Ordered By: Omid Santacruz Diet: Advance to usual diet Activity on Discharge: As tolerated Stand Alone Forms: Patient Portal Discharge page Care Plan Goals: recovery Health Concerns: pancreatitis Plan of Treatment: avoid etoh, low fat diet Assessment: see above
--- NOTE | 2021-12-29 15:07 | MHC.CM.PN ---
[facility] - SELF CARE PHONE NUMBER FOR APRIL RN VITA ([phone]) GIVEN TO PATIENT, APRIL HAS NOT BEEN ABLE TO GET AHOLD OF PATIENT TO START ASSESSMENT
== END 2021-12-29 15:35 | disposition home or self-care (01) | DRG 439 ==
LOC: HO.ED 12-27 00:15 → HO.EDOVER 12-27 01:07 → HO.S3 12-27 01:11
PROVIDERS: Emergency Medicine; Admitting Provider Hospitalist; Emergency Provider Internal Medicine; PCP Internal Medicine; Visit Provider Internal Medicine
DX: K85.20 Alcohol induced acute pancreatitis without necrosis or infection (principal); F11.20 Opioid dependence, uncomplicated; R65.10 Systemic inflammatory response syndrome (SIRS) of non-infectious origin without acute organ dysfunction; I10 Essential (primary) hypertension; F10.20 Alcohol dependence, uncomplicated; B19.20 Unspecified viral hepatitis C without hepatic coma; F17.210 Nicotine dependence, cigarettes, uncomplicated; Z20.822 Contact with and (suspected) exposure to COVID-19; Z71.41 Alcohol abuse counseling and surveillance of alcoholic; Z88.6 Allergy status to analgesic agent; Z79.899 Other long term (current) drug therapy
CPT/HCPCS: 36415; 71045; 74176; 80048; 80053; 80076; 83605; 83690; 83735; 84478; 85025; 85027; 86704; 86706; 86709; 86803; 87040; 87340; 87635; 96361; 96374; 96375; 99285; J1170; J1650; J1885; J2543

== ENCOUNTER 2023-02-04 09:12 | Day surgery (SDC) | payer OTHER, SELFPAY ==
--- NOTE | 2023-02-01 10:24 | HO.ANESPROP2 ---
Documented by User: Marisa Yu NP 02/01/23 10:25 HPI - Anesthesia Eval Consult details Narrative: 62yo M for Colonoscopy Hx ETOH abuse with pancreatitis 2021, but reports significantly cutting back on drinking since. Suboxone daily? PMFSH Active Problems Active Problems: All Active Problems (Updated 02/01/23 @ 06:49 by Rachel Solis RN) Pancreatitis (Acute) Past Medical History Medical History (Updated 02/01/23 @ 06:49 by Rachel Solis RN) Abnormal colonoscopy Asthma Bronchitis ETOH abuse GERD (gastroesophageal reflux disease) Hepatitis C Hiatal hernia Pancreatitis Substance abuse Surgical History Surgical History (Updated 02/01/23 @ 06:49 by Rachel Solis RN) H/O umbilical hernia repair Social History Social History Household Members: None Housing: Apartment Alcohol intake: current Alcohol intake frequency: 0-2 drinks per day Patient Tobacco Use Status: Current everyday Tobacco user Tobacco use type: Cigarette e-Cigarette/Vaping Use: Never Used Second Hand Smoke Exposure: No Use of substances other than those prescribed or required for medical reasons: Yes Substance Use Type Other:: suboxone Are you DNR?: No Advance Directives: No Advance Directives Information Provided: Yes service: No Current occupational status: retired Meds Allergies Allergy/AdvReac Type Severity Reaction Status Date / Time aspirin [ASPIRIN] Allergy Intermediate RASH/GI Verified 12/27/21 03:38 UPSET Home Medications Medication Instructions Recorded Confirmed Last Taken Type albuterol sulfate 90 mcg/actuation 2 inh inhalation QID PRN Wheezing 12/26/21 02/04/23 Unknown History aerosol inhaler buprenorphine 8 mg-naloxone 2 mg 1 film sublingual DAILY 12/26/21 02/04/23 Unknown History sublingual film montelukast 10 mg tablet 10 mg PO BEDTIME 12/26/21 12/27/21 Unknown History bisacodyl 5 mg tablet,delayed 10 mg PO BID 02/01/23 02/01/23 Unknown History release (Laxative (bisacodyl)) fluticasone fur. 100 mcg-umeclid inhalation DAILY 02/01/23 02/01/23 Unknown History 62.5 mcg-vilant 25 mcg inhalat.powder (Trelegy Ellipta) ibuprofen 800 mg tablet 800 mg PO Q8H PRN pain 02/01/23 02/01/23 Unknown History montelukast 10 mg tablet 10 mg PO BEDTIME 02/01/23 02/01/23 Unknown History omeprazole 20 mg capsule,delayed 20 mg PO DAILY 02/01/23 02/01/23 Unknown History release psyllium husk 0.4 gram capsule g PO 02/01/23 Unknown History trazodone 50 mg tablet 50 mg PO BEDTIME PRN Insomnia 02/01/23 02/01/23 Unknown History Exam Exam Date and Time: February 01, 2023 1024 Assessment and Plan Assessment Anesthesia Assessment: Chart Reviewed Documented by User: Ventura Laguerre MD 02/04/23 15:42 PMFSH Past Medical History Medical History (Updated 02/01/23 @ 06:49 by Rachel Solis RN) Abnormal colonoscopy Asthma Bronchitis ETOH abuse GERD (gastroesophageal reflux disease) Hepatitis C Hiatal hernia Pancreatitis Substance abuse Functional capacity: independent ambulation Family History Family history of problems with anesthesia: No Surgical History Surgical History (Updated 02/01/23 @ 06:49 by Rachel Solis RN) H/O umbilical hernia repair History of Problems with Anesthesia: No Social History Social History Household Members: None Housing: Apartment Alcohol intake: current Alcohol intake frequency: 0-2 drinks per day Patient Tobacco Use Status: Current everyday Tobacco user Tobacco use type: Cigarette e-Cigarette/Vaping Use: Never Used Second Hand Smoke Exposure: No Use of substances other than those prescribed or required for medical reasons: Yes Substance Use Type Other:: suboxone Are you DNR?: No Advance Directives: No Advance Directives Information Provided: Yes service: No Current occupational status: retired Meds Allergies Allergy/AdvReac Type Severity Reaction Status Date / Time aspirin [ASPIRIN] Allergy Intermediate RASH/GI Verified 12/27/21 03:38 UPSET Home Medications Medication Instructions Recorded Confirmed Last Taken Type albuterol sulfate 90 mcg/actuation 2 inh inhalation QID PRN Wheezing 12/26/21 02/04/23 Unknown History aerosol inhaler buprenorphine 8 mg-naloxone 2 mg 1 film sublingual DAILY 12/26/21 02/04/23 Unknown History sublingual film montelukast 10 mg tablet 10 mg PO BEDTIME 12/26/21 12/27/21 Unknown History bisacodyl 5 mg tablet,delayed 10 mg PO BID 02/01/23 02/01/23 Unknown History release (Laxative (bisacodyl)) fluticasone fur. 100 mcg-umeclid inhalation DAILY 02/01/23 02/01/23 Unknown History 62.5 mcg-vilant 25 mcg inhalat.powder (Trelegy Ellipta) ibuprofen 800 mg tablet 800 mg PO Q8H PRN pain 02/01/23 02/01/23 Unknown History montelukast 10 mg tablet 10 mg PO BEDTIME 02/01/23 02/01/23 Unknown History omeprazole 20 mg capsule,delayed 20 mg PO DAILY 02/01/23 02/01/23 Unknown History release psyllium husk 0.4 gram capsule g PO 02/01/23 Unknown History trazodone 50 mg tablet 50 mg PO BEDTIME PRN Insomnia 02/01/23 02/01/23 Unknown History Exam Airway Mallampati Class: III Loose/Missing/Broken Teeth: Yes Assessment and Plan Assessment Anesthesia Assessment: Anesthesia Plan Discussed Final Anesthetic Review Family History of Problems with Anesthesia: No History of Problems with Anesthesia: No NPO: Yes ASA Class: III Final Preanesthetic Review: Meds/Allgs Chart Reviewed, Consent Obtained/Reviewed and Anes Risks/Benef Reviewed Patient Risk: Intermediate Procedure Risk: Intermediate Anesthetic Plan Anesthetic Plan: MAC: Disposition: Standard PACU
[2023-02-04 10:23] VITALS: BP 125/73; PULSE 87; RESP 18; TEMP 36.4; O2SAT 96
[2023-02-04] MEDS: Lactated Ringers 1,000 ML 100 ML IVCONT (11:00)
[2023-02-04 12:47] VITALS: BP 139/76; PULSE 65; RESP 16; TEMP 36.1; O2SAT 98
--- NOTE | 2023-02-04 12:50 | PM.OP ---
Brief Operative Note Date of Service: 02/04/23 Pre-op diagnosis: Screening Post-op diagnosis: other (Colon polyps) Procedure: Colonoscopy to the cecum and TI with hot snare polypectomies, and placement of Resolution clips x 3 and x 1 on the 2 polypectomy sites of the proximal transverse colon along with submucosal ink markings Surgeon: Steve Boggs Anesthesia: MAC Was an Spiritual Advisor used for this Procedure?: No Estimated blood loss (mL): 2.0 Pathology: other (A. Hepatic flexure polyps B. Ascending colon polyp C. Proximal transverse colon polyps) Condition: stable Disposition: PACU
[2023-02-04 13:02] VITALS: BP 131/76; PULSE 61; RESP 16; O2SAT 100
--- NOTE | 2023-02-04 13:13 | OP_ITS ---
DATE OF SERVICE: 02/04/2023 SURGEON: Steve Boggs MD INDICATIONS: The patient presents for followup of colorectal cancer screening and a personal history of tubular adenomas of the colon. Full consent was obtained from him for this, including risks of bleeding and perforation. PREOPERATIVE DIAGNOSIS: POSTOPERATIVE DIAGNOSIS: PROCEDURE PERFORMED: Colonoscopy to the cecum and terminal ileum with hot snare polypectomies, placement of resolution clips, and marking with submucosal ink. ESTIMATED BLOOD LOSS: COMPLICATIONS: ANESTHESIA: Medication used; monitored anesthesia care. ASSISTANTS: SPECIMENS: PREOPERATIVE DIAGNOSES: Colorectal cancer screening and personal history of tubular adenomas of the colon. POSTOPERATIVE DIAGNOSES: Colorectal cancer screening and personal history of tubular adenomas of the colon, multiple colon polyps, diverticulosis, internal hemorrhoids. DESCRIPTION OF PROCEDURE: The patient was placed in the left lateral decubitus position. The digital rectal exam revealed no abnormalities. The Olympus video-pediatric colonoscope was entered into the rectum and advanced easily to the cecum. Once in the cecum I did identify a normal-appearing cecal pouch with appendiceal orifice, other than an approximately 4 mm polyp which was removed by cold snare polypectomy but not recovered. The polypectomy site appeared clean, without any sign of residual polyp nor significant bleeding. The remainder of the cecum appeared normal. The terminal ileum was cannulated and appeared normal. The scope was withdrawn back in the colon. The scope was slowly withdrawn assessing all mucosal surfaces carefully. Preparation was excellent. In the ascending colon were 2 polyps. One was approximately 5 or 6 mm in diameter and removed by hot snare polypectomy, but not recovered. Slightly more distal to this was an approximately 8-10 mm polyp, which was removed by hot snare polypectomy and recovered by suction. The polypectomy sites both appeared clean, without any sign of residual polyp nor bleeding. In the area of the hepatic flexure were 2 polyps. One was approximately 3 mm in diameter and was removed by cold biopsy forceps. The other polyp was approximately 6-8 mm in diameter and removed by hot snare polypectomy and recovered by suction. The polypectomy site appeared clean, without any sign of residual polyp nor bleeding. Just distal to this area, in the very proximal transverse colon, were 2 relatively large polyps. One was approximately 15 mm in diameter and removed by piecemeal hot snare polypectomy and recovered by suction. The larger polyp was approximately 10 mm x 20 mm. It was relatively flat and lobulated. This was also removed in piecemeal fashion with hot snare polypectomy with most of the pieces recovered for pathology by suction. Both polypectomy sites appeared clean, without sign of any definitive residual polyp tissue nor bleeding. I placed 3 resolution clips on the larger polypectomy site with good deployment and good hemostasis. A single clip was applied to the other polypectomy site with good deployment and good hemostasis as well. I did place 2 submucosal ink engel immediately distal to these polypectomy sites. The scope was then continued to be withdrawn. Preparation was for the most part excellent, although there was a fair amount of liquid stool which had to be suctioned and irrigated. I did not visualize any other polyps, colitis, nor angiodysplasia. There was a mild amount of sigmoid diverticulosis. In the rectum, the scope was retroflexed visualizing internal hemorrhoids, but no other pathology. The rectal mucosa appeared normal. The scope was straightened and withdrawn from the patient. He tolerated the procedure well and was returned to the recovery area in stable condition. IMPRESSION: 1. Colon polyps. 2. Diverticulosis. 3. Internal hemorrhoids. PLAN: The results of the pathology will be checked. If there are no worrisome changes I would recommend a repeat colonoscopy within 1 year for further followup. He was advised not to use any aspirin or NSAIDs for 2 weeks. This has been discussed with his son, aLci. MD LEBRON Allison/NATANAEL / [id number] MTDD
[2023-02-04 13:17] VITALS: BP 124/71; PULSE 57; RESP 16; TEMP 36.2; O2SAT 100
== END 2023-02-04 14:14 | disposition home or self-care (01) ==
PROVIDERS: PCP Internal Medicine; Visit Provider Internal Medicine
PROC: 0DJD8ZZ Inspection of Lower Intestinal Tract, Via Natural or Artificial Opening Endoscopic (ICD-10-PCS; CPT 45378; principal; 2023-02-04 10:30)
DX: Z12.11 Encounter for screening for malignant neoplasm of colon (principal); Z86.010 Personal history of colon polyps; K59.00 Constipation, unspecified; K21.9 Gastro-esophageal reflux disease without esophagitis; K44.9 Diaphragmatic hernia without obstruction or gangrene; F10.10 Alcohol abuse, uncomplicated; F19.10 Other psychoactive substance abuse, uncomplicated; J45.909 Unspecified asthma, uncomplicated; Z87.19 Personal history of other diseases of the digestive system; Z79.51 Long term (current) use of inhaled steroids; Z79.899 Other long term (current) drug therapy; Z88.8 Allergy status to other drugs, medicaments and biological substances; F17.210 Nicotine dependence, cigarettes, uncomplicated
CPT/HCPCS: 45385; 45381; 88305

== ENCOUNTER 2024-11-30 11:06 | Day surgery (SDC) | payer OTHER, SELFPAY ==
--- OUTSIDE RECORDS SUMMARY | 2024-10-29 10:18 | XMS_ITS ---
Author Organization [facility] Address [address] [place] [address] Care Team Providers Care Knitting Inspector Name Role Phone Gabriel Burrows MD Primary Care Provider Steve Dela Cruz [phone] Allergies Allergen (clinical drug ingredient) Drug/Non Drug Allergy documented on EMR Reaction Allergy Type Onset Date Status aspirin Aspirin rash Drug Allergy Active REASON FOR VISIT Patient presents today for a colonoscopy recall Medications Medication SIG (Take, Route, Frequency, Duration) Notes Start Date End Date Status Reguloid 0.52 GM TAKE 2 CAPSULES WITH 8 OZ OF LIQUID ONCE OR TWICE A DAY ON A REGULAR BASIS TO HELP W/ CONSTIPATION for 30 Acti ve ProAir HFA Active Symbicort Active Omeprazole Active Suboxone Active Zoloft Active Albuterol Active Psyllium Fiber 0.52 GM TAKE 2 CAPSULES W ITH 8 OZ OF LIQUID ONCE OR TWICE A DAY ON A REGULAR BASIS TO HELP W/ CONSTIPATION for 30 Acti ve Montelukast Sodium 10 MG Oral for 90 Days Active traZODone HCl 50 MG Oral for 30 Days Active [facility] Fiber 0.52 GM TAKE 2 CAPSULES WITH 8 OZ OF LIQUID ONCE OR TWICE A DAY ON A REGULAR BASIS TO HELP W/ CONSTIPATION Oral for 30 Days Active Social History Tobacco Use: Social History Observation Description Date Details (start date - stop date) Current Smoker NA - NA Tobacco Use/Smoking Question Answer Notes Patient is a current smoker How often do you smoke cigarettes? every day How many cigarettes a day do you smoke? 5 or les s Alcohol Screen Question Answer Notes Did you have a drink contain ing alcohol in the past year? Yes How often did you have a dri nk containing alcohol in the past year? 2 to 3 times a week (3 points) How many drinks did you have on a typical day when you were drinking in the past year? 3 or 4 drinks (1 point) Points 4 Interpretation Positive Section Notes: 1or 2 beers occasionally. Sm okes 1 cig daily. IVDA but with abstinence for approx 10 years--on Suboxone. Vital Signs Blood pressure systolic 111 mm Hg 09/11/19 25 Blood pressure diastolic 11 mm Hg 025 Height 68 in 09/10/2024 Weight 170 lbs 09/10/2024 BMI 25.85 kg/m2 09/10/2024 Procedures Procedure Date Ordered Date Performed Result Body Sit e COLONOSCOPY 09/10/2024 N/A Encounters Encounter Location Date Provider Diagnosis [facility] [address] [place] [address] 09/10/2024 Steve Boggs History of adenomato us polyp of colon Z86.010 ; GERD without esophagitis K21.9 ; Encounter for screening for malignant neoplasm of colon Z12.11 and Constipation, unspecified constipation type K59.00 Assessments Encounter Date Diagnosis (ICD Code) Assessment Notes Treatment Notes Treatment Clinical Notes Section Notes 09/10/2024 History of adenomatous polyp of colon (ICD-10 - Z86.010) Overall, Azar appears well. He is not having any new or worrisome GI complaints. I did advise him to continue his daily supplemental fiber with plenty of water as that does seem to be helping his constipation. I also advised him to continue to use omeprazole as needed for his gastroesophageal reflux. He is not having any new or worrisome symptoms in that regard to suggest the need for a follow-up endoscopy. His upper endoscopy in 2018 did not reveal any particular issues such as Alvarez's esophagus or significant esophagitis. I did recommend a follow-up colonoscopy for screening given the history of multiple tubular adenomas in November 2022, some of which were large. We did review the rationale for this in regard to colon cancer prevention. Full consent has been obtained for this, including risks of bleeding and perforation. The procedure will be done with monitored anesthesia care. Redd was comfortable with this plan. Thank you again for allowing me to participate in Redd's care. I shall continue to keep you advised of his progress. 09/10/2024 GERD without esophagitis (ICD-10 - K21.9) Overall, Azar appears well. He is not having any new or worrisome GI complaints. I did advise him to continue his daily supplemental fiber with plenty of water as that does seem to be helping his constipation. I also advised him to continue to use omeprazole as needed for his gastroesophageal reflux. He is not having any new or worrisome symptoms in that regard to suggest the need for a follow-up endoscopy. His upper endoscopy in 2018 did not reveal any particular issues such as Alvarez's esophagus or significant esophagitis. I did recommend a follow-up colonoscopy for screening given the history of multiple tubular adenomas in November 2022, some of which were large. We did review the rationale for this in regard to colon cancer prevention. Full consent has been obtained for this, including risks of bleeding and perforation. The procedure will be done with monitored anesthesia care. Redd was comfortable with this plan. Thank you again for allowing me to participate in Redd's care. I shall continue to keep you advised of his progress. 09/10/2024 Encounter for screening for malignant neoplasm of colon (ICD-10 - Z12.11) Overall, Azar appears well. He is not having any new or worrisome GI complaints. I did advise him to continue his daily supplemental fiber with plenty of water as that does seem to be helping his constipation. I also advised him to continue to use omeprazole as needed for his gastroesophageal reflux. He is not having any new or worrisome symptoms in that regard to suggest the need for a follow-up endoscopy. His upper endoscopy in 2018 did not reveal any particular issues such as Alvarez's esophagus or significant esophagitis. I did recommend a follow-up colonoscopy for screening given the history of multiple tubular adenomas in November 2022, some of which were large. We did review the rationale for this in regard to colon cancer prevention. Full consent has been obtained for this, including risks of bleeding and perforation. The procedure will be done with monitored anesthesia care. Redd was comfortable with this plan. Thank you again for allowing me to participate in Redd's care. I shall continue to keep you advised of his progress. 09/10/2024 Constipation, unspecified constipation type (ICD-10 - K59.00) Overall, Leoardo appears well. He is not having any new or worrisome GI complaints. I did advise him to continue his daily supplemental fiber with plenty of water as that does seem to be helping his constipation. I also advised him to continue to use omeprazole as needed for his gastroesophageal reflux. He is not having any new or worrisome symptoms in that regard to suggest the need for a follow-up endoscopy. His upper endoscopy in 2018 did not reveal any particular issues such as Alvarez's esophagus or significant esophagitis. I did recommend a follow-up colonoscopy for screening given the history of multiple tubular adenomas in November 2022, some of which were large. We did review the rationale for this in regard to colon cancer prevention. Full consent has been obtained for this, including risks of bleeding and perforation. The procedure will be done with monitored anesthesia care. Redd was comfortable with this plan. Thank you again for allowing me to participate in Redd's care. I shall continue to keep you advised of his progress. Plan Of Treatment Pending Test Test Name Order Date COLONOSCOPY 09/10/2024 Next Appt Details Follow Up: prn, Reason: Provider Name:Steve Boggs , 11/30/2024 12:40:00 PM, [address] [place] [address], [phone], Progress Notes * TRISHA CHINGODOB: (64 yo M)Acc No.[id number]:09/10/2024 Progress Notes Patient:?REDD CHING Provider:?Steve Boggs MD :1960???Age:64 Y???Sex:Male Tyrel e:09/10/2024 Address:[address] [place], [place] [id number] Pcp:Gabriel Burrows MD Subjective: * Chief Complaints: * ???Patient presents today fo r a colonoscopy recall * HPI: ???incontinence:? I saw Redd in follow-up today in regard to his chronic constipation, gastroesophageal reflux, and personal history of tubular adenomas with the need for a follow-up colorectal cancer screening. I last saw Redd in November 2022, at which time he underwent a follow-up screening colonoscopy with removal of multiple tubular adenomas, some of which were over 1 cm in size. There is no sign of any significant dysplasia nor carcinoma within the polyps. Since that time he has been feeling well from a GI standpoint. He does continue on his daily fiber which she reports has helped his constipation. He has not noticed any hematochezia nor melena. He denies any abdominal pains, jaundice, nor unintentional weight loss. He does use omeprazole as needed for reflux symptoms with good relief, but denies any dysphagia, anorexia, early satiety, nausea, nor vomiting. He denies any known family history of colorectal cancer. * ROS:?General/Constitutional:?Change in appetite?denies.?Chills?denies.?Fatigue?denies.?Ophthalmologic:?Patient denies? Negative..?ENT:?Patient denies?Negative..?Respiratory:?Patient denies?No coughing/hemoptysis..?Cardiovascular:?Patient denies? No chest pain/orthopnea..?Gastrointestinal:?Comments?See HPI for details.?Genitourinary:?Patient denies? No dysuria/hematuria..?Musculoskeletal:?Patient denies? No specific arthralgias/myalgias..?Skin:?Patient denies?No rash/pruritus..?Neurologic:?Patient denies? No headaches/seizures..?Psychiatric:?Patient denies?Negative..? * Medical History:? * Surgical History:?Umbilical hernia repair * Hospitalization/Major Diagno stic Procedure:?No Hospitalization History. * Family History:?Father: dece ased.?Mother: .? No colorectal cancer. * Social History:?Tobacco Use:?Tobacco Use/Smoking?Patient is a?current smoker,?How often do you smoke cigarettes??every day,?How many cigarettes a day do you smoke??5 or less.?Drugs/Alcohol:?Drugs?Have you used drugs other than those for medical reasons in the past 12 months? Still using IV Heroin-as recently as last week.?Alcohol Screen?Did you have a drink containing alcohol in the past year??Yes,?How often did you have a drink containing alcohol in the past year??2 to 3 times a week (3 points),?How many drinks did you have on a typical day when you were drinking in the past year??3 or 4 drinks (1 point),?Points?4,?Interpretation?Positive.?Miscellaneous:?Marital status: single. Occupation: unemployed/ss. ???1or 2 beers occasionally. Smokes 1 cig daily. IVDA but with abstinence for approx 10 years--on Suboxone. * Medications:?TakingZoloft Al buterol Symbicort ProAir HFA Suboxone Omeprazole Reguloid 0.52 GM Capsule TAKE 2 CAPSULES WITH 8 OZ OF LIQUID ONCE OR TWICE A DAY ON A REGULAR BASIS TO HELP W/ CONSTIPATION Psyllium Fiber 0.52 GM Capsule TAKE 2 CAPSULES WITH 8 OZ OF LIQUID ONCE OR TWICE A DAY ON A REGULAR BASIS TO HELP W/ CONSTIPATION traZODone HCl 50 MG Tablet Oral Montelukast Sodium 10 MG Tablet Oral [facility]S Fiber 0.52 GM Capsule TAKE 2 CAPSULES WITH 8 OZ OF LIQUID ONCE OR TWICE A DAY ON A REGULAR BASIS TO HELP W/ CONSTIPATION Oral Taking Zoloft Taking Albuterol Taking Symbicort Taking ProAir HFA Taking Suboxone Taking Omeprazole Taking Reguloid 0.52 GM Capsule TAKE 2 CAPSULES WITH 8 OZ OF LIQUID ONCE OR TWICE A DAY ON A REGULAR BASIS TO HELP W/ CONSTIPATION Taking Psyllium Fiber 0.52 GM Capsule TAKE 2 CAPSULES WITH 8 OZ OF LIQUID ONCE OR TWICE A DAY ON A REGULAR BASIS TO HELP W/ CONSTIPATION Taking traZODone HCl 50 MG Tablet Oral Taking Montelukast Sodium 10 MG Tablet Oral Taking [facility]S Fiber 0.52 GM Capsule TAKE 2 CAPSULES WITH 8 OZ OF LIQUID ONCE OR TWICE A DAY ON A REGULAR BASIS TO HELP W/ CONSTIPATION Oral DiscontinuedFluticasone Propionate MiraLax (colon prep) 17 GM/SCOOP Powder 1 238Gm bottle of Miralax mixed with Gatorade or Crystal Light Orally begin at 5:00 p.m. the day before the procedure Dulcolax (colon prep) 5 MG Tablet Delayed Release take at 3:00 p.m and 7:00p.m. on the day before the colonoscopy Orally two tablets twice a day for one day Medication List reviewed and reconciled with the patientDiscontinued Fluticasone Propionate Discontinued MiraLax (colon prep) 17 GM/SCOOP Powder 1 238Gm bottle of Miralax mixed with Gatorade or Crystal Light Orally begin at 5:00 p.m. the day before the procedure Discontinued Dulcolax (colon prep) 5 MG Tablet Delayed Release take at 3:00 p.m and 7:00p.m. on the day before the colonoscopy Orally two tablets twice a day for one day Medication List reviewed and reconciled with the patient * Allergies:?Aspirin: rashyes[ Allergies Verified] Objective: * Vitals:?Wt:170lbs, Ht: 68 in , BMI:25.85Index, BP:111/11mm Hg, Wt-k.11. * Examination: ???General Examination: ?GENERAL APPEARANCE:?pleasant, well nourished, well developed, in no acute distress.?EYES:?sclera non-icteric.?ORAL CAVITY:?mucosa moist.?NECK/THYROID:?no cervical lymphadenopathy, neck supple.?SKIN:?nonjaundiced, no spider angiomata..?HEART:?S1, S2 normal.?LUNGS:?clear to auscultation bilaterally.?ABDOMEN:?normal bowel sounds, no guarding or rigidity, no hepatosplenomegaly, no masses palpable, soft, nontender, nondistended. Soft, NT, and reducible umbilical hernia.?EXTREMITIES:?no edema.?NEUROLOGIC:?alert and oriented.? Assessment: * Assessment: 1.?GERD without esophagitis - K21.9 (Primary)???2.?History of adenomatous polyp of colon - Z86.010???3.?Encounter for screening for malignant neoplasm of colon - Z12.11???4.?Constipation, unspecified constipation type - K59.00??? Overall, Azar appears wel l. He is not having any new or worrisome GI complaints. I did advise him to continue his daily supplemental fiber with plenty of water as that does seem to be helping his constipation. I also advised him to continue to use omeprazole as needed for his gastroesophageal reflux. He is not having any new or worrisome symptoms in that regard to suggest the need for a follow-up endoscopy. His upper endoscopy in 2018 did not reveal any particular issues such as Alvarez's esophagus or significant esophagitis. I did recommend a follow-up colonoscopy for screening given the history of multiple tubular adenomas in November 2022, some of which were large. We did review the rationale for this in regard to colon cancer prevention. Full consent has been obtained for this, including risks of bleeding and perforation. The procedure will be done with monitored anesthesia care. Redd was comfortable with this plan. Thank you again for allowing me to participate in Redd's care. I shall continue to keep you advised of his progress. Plan: * Treatment: 2.?Encounter for screening for malignant neoplasm of colon?Procedure: COLONOSCOPY* with MACsched for 11/30/24 at 12:40 pmmiralax * Procedure Codes:?47513 DIAGN OSTIC [id number] COLORECTAL CA SCREEN DOC [id number] BP SCR NOT PRFRM REC REASON [id number] RCMND FLW-UP 10 YRS [id number] Pt scrn tbco and id as user * Preventive Medicine:? ??Counseling:?Care goal follow-up plan:?Above Normal BMI Follow-up?Giving encouragement to exercise,?BMI management provided?Yes.? * Follow Up:?prn * * Sign off status: Completed true * Provider:?Steve Boggs MD Date:? 025 Generated for Fili skinner/Michelle/Frediitting on:?10/29/2024 10:18 AM EDT History and Physical Notes * Examination Category Sub-Category Detail Notes Category Not es General Examination GENERAL APPEARANCE: pleasant , well nourished, well developed, in no acute distress EYES: sclera non-icteric NECK/THYROID: no cervical lymphade nopathy, neck supple HEART: S1, S2 normal LUNGS: clear to auscultatio n bilaterally ABDOMEN: normal bowel sounds, no guarding or rigidity, no hepatosplenomegaly, no masses palpable, soft, nontender, nondistended. Soft, NT, and reducible umbilical hernia NEUROLOGIC: alert and oriented SKIN: nonjaundiced, no spi sara angiomata. EXTREMITIES: no edema ORAL CAVITY: mucosa moist
--- OUTSIDE RECORDS SUMMARY | 2024-10-29 10:18 | XMS_ITS | Patient Health Record ---
Author Organization [facility] Address [address] [place] [address] Care Team Providers Care Telecom Assistant Name Role Phone Gabriel Burrows MD Primary Care Provider Steve Dela Cruz [phone] Allergies Allergen (clinical drug ingredient) Drug/Non Drug Allergy documented on EMR Reaction Allergy Type Onset Date Status aspirin Aspirin rash Drug Allergy Active Reason For Referral No Information Medications Medication SIG (Take, Route, Frequency, Duration) Notes Start Date End Date Status Psyllium Fiber 0.52 GM TAKE 2 CAPSULES W ITH 8 OZ OF LIQUID ONCE OR TWICE A DAY ON A REGULAR BASIS TO HELP W/ CONSTIPATION for 30 Active Dulcolax (colon prep) 5 MG take at 3:00 p.m and 7:00p.m. Orally two tablets twice a day for one day for 1 days 09/16/2024 Active Reguloid 0.52 GM TAKE 2 CAPSULES WITH 8 OZ OF LIQUID ONCE OR TWICE A DAY ON A REGULAR BASIS TO HELP W/ CONSTIPATION for 30 Active MiraLax (colon prep) 17 GM/SCOOP 1 238 Gm bottle mixed with Gatorade or Crystal Light orally begin at 5:00 p.m. the day before the procedure for 1 days 09/16/2024 Active Montelukast Sodium 10 MG Oral for 90 Days Active traZODone HCl 50 MG Oral for 30 Days Active Zoloft Active [facility] Fiber 0.52 GM TAKE 2 CAPSULES WITH 8 OZ OF LIQUID ONCE OR TWICE A DAY ON A REGULAR BASIS TO HELP W/ CONSTIPATION Oral for 30 Days Active Albuterol Active ProAir HFA Active Symbicort Active Omeprazole Active Suboxone Active Social History Tobacco Use: Social History [...] point) Points 4 Interpretation Positive Section Notes: Nonsmoker x 1 month, 2-3 bee rs a few times a week Nonsmoker for several weeks, 2-3 beers a few times a week. He does continue to use IV drugs, at least one time per week according to his report 2-3 beers a few times a week . IVDA but with abstinence for approx 4 years--on Suboxone. 1or 2 beers occasionally. Sm okes 1 cig daily. IVDA but with abstinence for approx 10 years--on Suboxone. 1or 2 beers occasionally. Sm okes 1 cig daily. IVDA but with abstinence for approx 10 years--on Suboxone. Problems Problem Type SNOMED Code ICD Code Onset Dates Problem Status W/U Status Risk Notes Problem 165928378 Encounter for screening for malignant neoplasm of colon (Z12.11) Active confirmed Problem 512979575 History of adenomatous polyp of colon (Z86.010) Active confirmed Problem 08899965 Constipation, unspecified constipation type (K59.00) Active confirmed Problem 868586635 GERD without esophagitis (K21.9) Active confirmed Problem Diverticulosis of colon (913494221) Diverticulosis of colon (K57.30) Active confirmed Vital Signs Blood pressure diastolic 11 mm Hg 09/10/2024 Height 68 in 09/10/2024 Blood pressure systolic 111 mm Hg 09/10/2024 Weight 170 lbs 09/10/2024 BMI 25.85 kg/m2 09/10/2024 Procedures Procedure Date Ordered Date Performed Result Body Sit e COLONOSCOPY 09/10/2024 N/A Encounters Encounter Location Date Provider Diagnosis [facility] [address] [place] [address] 09/10/2024 Steve Boggs History of adenomato us polyp of colon Z86.010 ; GERD without esophagitis K21.9 ; Encounter for screening for malignant neoplasm of colon Z12.11 and Constipation, unspecified constipation type K59.00 [facility] [address] [place] [address] 12/04/2023 Steve Boggs [facility] [address] [place] [address] 09/10/2024 Steve Boggs Assessments Encounter Date Diagnosis (ICD Code) Assessment [...] unspecified constipation type (ICD-10 - K59.00) Overall, Azar appears well. He is not [...] Test Test Name Order Date COLONOSCOPY 09/10/2024 Future Test Test Name Order Date COLONOSCOPY 06/12/2012 UPPER GI ENDOSCOPY 04/02/2017 COLONOSCOPY 04/02/2017 COLONOSCOPY 11/15/2022 Next Appt Details Provider Name:Steve Boggs , 11/30/2024 12:40:00 PM, [address] [place] [address], [phone], Insurance Providers Payer Name Payer Address Payer Phone Subscriber Number Group Number Insured Name Patient Relationship to Insured Coverage Start Date Coverage End Date [facility] [address] Attn Claims [place] [id number] REDD CHING Self - patient is the insured Medical (General) History Medical History History ICD Code Positive Hepatitis C antibod y-had a nondetectable Hep C RNA in 03/2001 and in May of 2012, and neg. Hep B surface antigen also Substance abuse Asthma/bronchitis Denies PA,DM,CVA,renal disease Colonoscopy in July with removal of small tubular adenomas, and the finding of some nonspecific and isolated colitis in the region of the cecum GERD-EGD 07/2017 with a small hiatal ami ia, but no esophagitis nor Alvarez's Colonoscopy 07/2017 with 3 small tubular adenomas EtOH-pancreatitis in 12/2021 Colonoscopy 11/2022 with eduardo cici of multiple tubular adenomas, some of which were > 1cm Surgical History Surgery Date(Month/Year) Umbilical hernia repair
--- OUTSIDE RECORDS SUMMARY | 2024-10-29 10:18 | XMS_ITS ---
Author Organization [facility] Address [address] [place] [address] Care Team Providers Care Painter And Paperhanger Apprentice Name Role Phone Gabriel Burrows MD Primary Care Provider Steve Dela Cruz [phone] Encounters Encounter Location Date Provider Diagnosis [facility] [address] [place] [address] 12/04/2023 Steve Boggs Plan Of Treatment Next Appt Details Provider Name:Steve Boggs , 11/30/2024 12:40:00 PM, [address] [place] [address] , [place], [place], [phone], Progress Notes * TRISHA CHINGODOB: (63 yo M)Acc No.[id number]:12/04/2023 Patient:?MICAH CHING :1960???Age:63 Y???Sex:Male Address:[address] , [place] [address] * true * Date:? Generated for Printi brody/Michelle/eTransmitting on:?10/29/2024 10:18 AM EDT
--- OUTSIDE RECORDS SUMMARY | 2024-10-29 10:18 | XMS_ITS | Clinical Summary ---
Author Organization [facility] [address] [facility] Address [address] [place] [address] Phone Care Team Providers Care Post Commander Name Role Phone Gabriel Burrows MD Primary Care Provider [phone] Allergies Active Allergy Reactions Criticality Noted Date Comments Aspirin Itching 08/07/2017 Medications ibuprofen (ADVIL,MOTRIN) 800 mg tablet Take 1 tablet (800 mg total) by mouth every 8 (eight) hours if needed. 4 Active montelukast (SINGULAIR) 10 mg tablet Take 1 tablet (10 mg total) by mouth at bedtime. 4 Active fluticasone-um eclidinium-kelli anterol (Trelegy Ellipta) 100-62.5-25 mcg inhaler Inhale 1 Puff into the lungs daily. 4 Active albuterol HFA (PROAIR HFA ; PROVENTIL HFA ; VENTOLIN HFA) 90 mcg/actuation inhaler Inhale 2 Puffs into the lungs every 4 hours as needed for Cough or Wheezing. 4 Active fluticasone propionate (FLONASE) 50 mcg/actuation nasal spray 2 Sprays by Nasal route daily. 3 Active buprenorphine- naloxone (SUBOXONE) 8-2 mg per SL film TAKE 1 FILM SUBLINGUALLY EVERY DAY 3 Active traZODone (DESYREL) 50 mg tablet Take 1 tablet (50 mg total) by mouth at bedtime. 30 tablet 1 5 Active omeprazole (PriLOSEC) [address] capsule Take 1 capsule (20 mg total) by mouth 1 (one) time each day. 30 capsule 1 5 Active omeprazole (PriLOSEC) [address] capsule Take 1 capsule (20 mg total) by mouth 1 (one) time each day. 30 capsule 5 025 Discontin ued(Reord er) traZODone (DESYREL) 50 mg tablet TAKE ONE TABLET BY MOUTH AT BEDTIME DAILY. 30 tablet 5 025 Discontin ued(Reord er) Active Problems Problem Noted Date Diagnosed Date Asthma 06/09/2024 Depression 06/09/2024 Opioid abuse ([facility] [place]24, [facility] V28) 06/09/20 Fatty liver 04/03/2022 Emphysema of lung ([facility] [place]24, [facility] V28) Pulmonary nodule 04/02/2019 Overview (06/09/2024): Low Dose CT: 03/02/21: Stable. Repeat 1 year. Allergic rhinitis 01/05/2019 Insomnia 05/29/2018 Positive hepatitis C antibody test 10/05/2016 GERD (gastroesophageal reflux disease) 4 Overview (06/09/2024): Good control with PPI once a day. Immunizations Name Administration Dates Next Due Influenza Quadravalent, MDCK , 0.5ml, preservative free (Flucelvax) 6mo and older 03/01/2023,02/21/2022 Influenza Quadravalent, MDCK , 0.5ml, with preservative (Flucelvax) 6mo and older 03/26/2017 Influenza trivalent, 0.5mL, preservative free (Fluarix; FluLaval; Fluzone) ages 6mo and older (Afluria) 3 years and older 06/18/2016,03/23/2014 [employer] SARS-CoV-2 COVID -19, vector-nr, rS-Ad26, preservative free 11/10/2020 evocatal SARS-CoV-2 COVID-19, mRNA, LNP-S, preservative free 07/04/2021 Pneumococcal polysaccharide 23 valent (Pneumovax 23) 2yo and older 12/05/2017 Tdap Tetanus diptheria acell ular pertussis (Boostrix; Adacel) 7yo and older 06/18/2016 Surgical History Surgery Date Site/Laterality Comments COLONOSCOPY PROCEDURE: HISTORICAL COLONOSCOPY; COMMENT: [facility] on 2? 12? 18 where patient had hiatal hernia, colon polyps, diverticulosis. Instructed to continue Prilosec and repeat colonoscopy in 5 years. HERNIA REPAIR 02/04/2019 PROCEDURE: REPAIR UMBILICAL HERNIA; COMMENT: Dr. Vang Medical History Medical History Date Comments Depression DX:Depression Asthma DX:Asthma Opioid abuse (CMS/HCC V24, C MS/HCC V28) DX:Opioid abuse (HCC) Hepatitis C DX:Hepatitis C GERD (gastroesophageal reflux disease) 4 DX:GERD (gastroesophageal reflux disease); COMMENT: Good control with PPI once a day. Fatty liver 04/03/2022 DX:Fatty liver Family History Medical History Relation Name Comments Prostate cancer Father's side Hypertension Mother Breast cancer Mother's side 1 Diabetes Mother's side 2 Relation Name Status Comments Father (Age 70) Father's side Mother (Age 51) Mother's side 1 Mother's side 2 Social History Tobacco Use Types Packs/Day Years Used Date Smoking Tobacco: Every Day Smokeless Tobacco: Never Alcohol Use Standard Drinks/Week Comments Yes 0 (1 standard drink = 0.6 oz pur e alcohol) Sex and Gender Information Value Date Recorded Sex Assigned at Not on file Legal Sex Male 2:16 AM EST Gender Identity Not on file Sexual Orientation Not on file Obstetrics History Last Filed Vital Signs Vital Sign Reading Time Taken Comments Blood Pressure 112/70 11/25/2023 9:41 AM EDT Sitting L Arm Pulse 61 11/25/2023 9:41 AM EDT Temperature - - Respiratory Rate - - Oxygen Saturation - - Inhaled Oxygen Concentration - - Weight 75.8 kg (167 lb 3.2 oz) 11/25/2023 9:41 AM EDT Height 172.7 cm (5' 8 ) 11/25/2023 9:41 AM EDT Body Mass Index 25.42 11/25/2023 9:41 AM EDT Plan of Treatment Upcoming Encounters Date Type Department Care Team (Late st Contact Info) Description 11/27/2024 10:00 AM EDT Office Visit Adult Medicine [address] [id number] Lesley Dejesus PA [address] [place] [address] Health Maintenance Due Date Last Done Comments Hepatitis A Vaccines (1 of 2 - Risk 2-dose series) 02/08/1980 Zoster Vaccines (1 of 2) 2011 Pneumococcal Vaccine: 50+ Years (2 of 2 - PCV) 12/05/2018 12/05/2017 Pneumococcal Vaccine: Pediatrics (0 to 5 Years) and At-Risk Patients (6 to 64 Years) (2 of 2 - PCV) 12/05/2018 12/05/2017 RSV Immunization Adult Patients (1 - Risk 60-74 years 1-dose series) 2021 HIV Screening 05/19/2022 Social Influencers of Health Screening 05/19/2022 COVID-19 Vaccine ( - season) 2024 07/04/2021, 11/10/2020 Depression Screening 09/04/2024 09/05/2023 Influenza Vaccine (Season Ended) 2025 03/01/2023, 02/21/2022, 03/26/2017, Additional history exists DTaP,Tdap,and Td Vaccines (2 - Td or Tdap) 06/18/2026 06/18/2016 Colorectal Cancer Screening: Colonoscopy 07/22/2027 07/22/2017 Cholesterol Screening (Lipid Panel) 09/16/2028 09/17/2023 Hepatitis C Screening Completed 10/02/2016 HIB Vaccines Aged Out No longer eligi ble based on patient's age to complete this topic HPV Vaccines Aged Out No longer eligi ble based on patient's age to complete this topic Hepatitis B Vaccines Aged Out No long er eligible based on patient's age to complete this topic IPV Vaccines Aged Out No longer eligi ble based on patient's age to complete this topic MMR Vaccines Aged Out No longer eligi ble based on patient's age to complete this topic Meningococcal ACWY Vaccine Aged Out N o longer eligible based on patient's age to complete this topic Meningococcal B Vaccine Aged Out No l onger eligible based on patient's age to complete this topic RSV Immunization Patients Under 20 months Aged Out No longer eligible based on patient's age to complete this topic Varicella Vaccines Aged Out No longer eligible based on patient's age to complete this topic Procedures Procedure Name Priority Date/Time Associated Diagnosis Comments LIPID PANEL Routine 09/17/2023 DEPRESSION SCREENING Routine 09/05/2023 COLONOSCOPY Routine 07/22/2017 HEPATITIS C SCREENING Routine 10/02/2016 from Last 3 Months or Most Recently Relevant to Health Maintenance Results * Lipid panel (09/17/2023) [facility] LDL/HDL Ratio 2 0 - 4 Triglycerides 58 0 - 150 mg/dL Cholesterol 157 0 - 200 mg/dL HDL 92 >=40 mg/dL LDL Cholesterol 54 0 - 100 mg/dL Blood Venous blood specimen / Unknown [facility] Provider LAB BLOOD ORDERABLES Lily l Result * Depression Screening (09/05/2023) Pathologist [facility] Depression Screening abstracted [facility] Provider HEALTH MAINTENANCE Final Result * Colonoscopy (07/22/2017) Pathologist [facility] Colonoscopy no interpretation , abstracted Anatomical Region Laterality Modality Other [facility] Provider HEALTH MAINTENANCE Final Result * Hepatitis C Screening (10/02/2016) Pathologist [facility] Hepatitis C Screening abstracted [facility] Provider HEALTH MAINTENANCE Final Result from Last 3 Months or Most Recently Relevant to Health Maintenance Insurance MEDICAID - [place] Care Teams Post Commander Relationship Specialty Start Date End Date Gabriel Burrows MD PCP - General Internal Medicine 03/19/14
--- OUTSIDE RECORDS SUMMARY | 2024-10-29 10:18 | XMS_ITS ---
Author Organization [facility] Address [address] [place] [address] Care Team Providers Care Enroute Controller Name Role Phone Gabriel Burrows MD Primary Care Provider Steve Dela Cruz [phone] REASON FOR VISIT bowel prep Medications Medication SIG (Take, Route, Frequency, Duration) Notes Start Date End Date Status Dulcolax (colon prep) 5 MG take at 3:00 p.m and 7:00p.m. Orally two tablets twice a day for one day for 1 days 09/16/2024 Active MiraLax (colon prep) 17 GM/SCOOP 1 238 Gm bottle mixed with Gatorade or Crystal Light orally begin at 5:00 p.m. the day before the procedure for 1 days 09/16/2024 Active Encounters Encounter Location Date Provider Diagnosis [facility] [address] [facility] [address] [place] [phone] 09/10/2024 Steve Boggs Plan Of Treatment Medication Medication Name Sig Start Date Stop Date Notes Dulcolax (colon prep) 5 MG take at 3:00 p.m and 7:00p.m. Orally two tablets twice a day for one day for 1 days 09/16/2024 MiraLax (colon prep) 17 GM/SCOOP 1 238 Gm bottle mixed with Gatorade or Crystal Light orally begin at 5:00 p.m. the day before the procedure for 1 days 09/16/2024 Next Appt Details Provider Name:Steve Boggs , 11/30/2024 12:40:00 PM, [address] [place] [address], [phone], Progress Notes * TRISHA CHINGODOB: (64 yo M)Acc No.[id number]:09/10/2024 Patient:MICAH OG :1960???Age:64 Y???Sex:Male Address:[address] [place] [id number] * Refills? Start MiraLax (colon prep) Powder, 17 GM/SCOOP, orally, 1, 1 238 Gm bottle mixed with Gatorade or Crystal Light, begin at 5:00 p.m. the day before the procedure, 1 days, Refills=0 Start Dulcolax (colon prep) Tablet Delayed Release, 5 MG, Orally, 4, take at 3:00 p.m and 7:00p.m., two tablets twice a day for one day, 1 days, Refills=0 * true * Date:? Generated for Fili skinner/Michelle/eTransmitting on:?10/29/2024 10:17 AM EDT
--- NOTE | 2024-11-30 10:25 | HO.ANESPROP2 ---
[facility] Active Problems Active Problems: All Active Problems (Updated 02/01/23 @ 06:49 by Rachel Solis RN) Pancreatitis (Acute) Past Medical History Medical History Hepatitis C Bronchitis Asthma Substance abuse Abnormal colonoscopy Hiatal hernia GERD (gastroesophageal reflux disease) Pancreatitis ETOH abuse Functional capacity: independent ambulation Family History Family history of problems with anesthesia: No Surgical History Surgical History H/O umbilical hernia repair History of Problems with Anesthesia: No Social History Social History Household Members: None Housing: Apartment Alcohol intake: current Alcohol intake frequency: 0-2 drinks per day Patient Tobacco Use Status: Current everyday Tobacco user Tobacco use type: Cigarette e-Cigarette/Vaping Use: Never Used Second Hand Smoke Exposure: No service: No Current occupational status: retired Meds Allergies Allergy/AdvReac Type Severity Reaction Status Date / Time aspirin (ASPIRIN) Allergy Intermediate RASH/GI Verified 12/27/21 03:38 UPSET Active Medications: Current Medications Lactated Ringer's (Lr) 1,000 mls @ 80 mls/hr IVCONT .[id number] OPAL Home Medications ?Medication ?Instructions ?Recorded ?Confirmed ?Last Taken ?Type albuterol sulfate 90 mcg/actuation 2 inh inhalation QID PRN Wheezing 12/26/21 02/04/23 Unknown History aerosol inhaler buprenorphine 8 mg-naloxone 2 mg 1 film sublingual DAILY 12/26/21 02/04/23 Unknown History sublingual film montelukast 10 mg tablet 10 mg PO BEDTIME 12/26/21 12/27/21 Unknown History bisacodyl 5 mg tablet,delayed 10 mg PO BID 02/01/23 02/01/23 Unknown History release (Laxative (bisacodyl)) fluticasone fur. 100 mcg-umeclid inhalation DAILY 02/01/23 02/01/23 Unknown History 62.5 mcg-vilant 25 mcg inhalat.powder (Trelegy Ellipta) ibuprofen 800 mg tablet 800 mg PO Q8H PRN pain 02/01/23 02/01/23 Unknown History montelukast 10 mg tablet 10 mg PO BEDTIME 02/01/23 02/01/23 Unknown History omeprazole 20 mg capsule,delayed 20 mg PO DAILY 02/01/23 02/01/23 Unknown History release psyllium husk 0.4 gram capsule g PO 02/01/23 Unknown History trazodone 50 mg tablet 50 mg PO BEDTIME PRN Insomnia 02/01/23 02/01/23 Unknown History Exam Airway TM Dist: >3cm Neck ROM: Full Heart: RRR Lungs: CTa Assessment and Plan Assessment Anesthesia Assessment: Anesthesia Plan Discussed and Chart Reviewed Final Anesthetic Review Family History of Problems with Anesthesia: No History of Problems with Anesthesia: No NPO: Yes ASA Class: III Final Preanesthetic Review: Meds/Allgs Chart Reviewed, Consent Obtained/Reviewed and Anes Risks/Benef Reviewed
[2024-11-30 11:20] VITALS: BMI 25.7
[2024-11-30] MEDS: Lactated Ringers 1,000 ML 80 ML IVCONT (11:21)
[2024-11-30 11:39] VITALS: BP 131/77; PULSE 83; RESP 18; TEMP 36.8; O2SAT 98
--- NOTE | 2024-11-30 12:53 | P.CONAN_ITS ---
[facility] Active Problems Active Problems: All Active Problems Pancreatitis (Acute) Past Medical History Medical History Hepatitis C Bronchitis Asthma Substance abuse Abnormal colonoscopy Hiatal hernia GERD (gastroesophageal reflux disease) Pancreatitis ETOH abuse Functional capacity: independent ambulation Family History Family history of problems with anesthesia: No Surgical History Surgical History H/O umbilical hernia repair History of Problems with Anesthesia: No Social History Social History Household Members: None Housing: Apartment Are you a primary health care administrator to a significant other at home: No Do you presently have visiting nurse or other home services: No Alcohol intake: current Alcohol intake frequency: 0-2 drinks per day Patient Tobacco Use Status: Current everyday Tobacco user Tobacco use type: Cigarette Smoked in Last 30 Days: Yes e-Cigarette/Vaping Use: Never Used Patient Interested in Nicotine Replacement: No Second Hand Smoke Exposure: No Have you been hit, kicked, punched, or otherwise hurt by someone within the past year? If so, by whom?: No Are you DNR?: No Advance Directives: No Advance Directives Information Provided: Yes Poor oral hygiene: No service: No Current occupational status: retired Meds Allergies Allergy/AdvReac Type Severity Reaction Status Date / Time aspirin (ASPIRIN) Allergy Intermediate RASH/GI Verified 12/27/21 03:38 UPSET Active Medications: Current Medications Lactated Ringer's (Lr) 1,000 mls @ 80 mls/hr IVCONT .[id number] OPAL Last Admin: 11/30/24 11:21 Dose: 80 mls/hr Naloxone HCl (Naloxone Hcl 0.4 Mg/Ml Vial) 0.04 mg IVPUSH Q5M PRN PRN Reason: Excessive sedation or RR < 8 Sodium Biphosphate/Sodium Phosphate (Sodium Phosphate,Yuba-Dibasic 133 Ml Enema) 133 ml [place] ONCE PRN PRN Reason: Poor Colonoscopy Prep Results Home Medications ?Medication ?Instructions ?Recorded ?Confirmed ?Last Taken ?Type albuterol sulfate 90 mcg/actuation 2 inh inhalation QI D PRN Wheezing 12/26/21 02/04/23 Unknown History aerosol inhaler buprenorphine 8 mg-naloxone 2 mg 1 film sublingual MARIA EUGENIA LY 12/26/21 02/04/23 Unknown History sublingual film montelukast 10 mg tablet 10 mg PO BEDTIME 12/26/21 Unknown History bisacodyl 5 mg tablet,delayed 10 mg PO BID 02/01/23 Unknown History release (Laxative (bisacodyl)) fluticasone fur. 100 mcg-umeclid inhalation DAILY 01/0902/01/23 Unknown History 62.5 mcg-vilant 25 mcg inhalat.powder (Trelegy Ellipta) ibuprofen 800 mg tablet 800 mg PO Q8H PRN pain 02/0102/01/23 Unknown History montelukast 10 mg tablet 10 mg PO BEDTIME 02/01/23 Unknown History omeprazole 20 mg capsule,delayed 20 mg PO DAILY 02/01/23 Unknown History release psyllium husk 0.4 gram capsule g PO 02/01/23 Unknown History trazodone 50 mg tablet 50 mg PO BEDTIME PRN Insomni a 02/01/23 02/01/23 Unknown History Exam Height,Weight and Vital Signs: Height 5 ft 8 in Weight 76.6 kg Last Vital Signs Temp 98.2 F 11/30/24 11:39 Pulse 83 11/30/24 11:39 Resp 18 11/30/24 11:39 BP 131/77 11/30/24 11:39 Pulse Ox 98 11/30/24 11:39 O2 Del Method Room Air 11/30/24 11:39 Airway Mallampati Class: III TM Dist: >3cm Neck ROM: Full Heart: RRR Lungs: CTA Assessment and Plan Assessment Anesthesia Assessment: Anesthesia Plan Discussed Final Anesthetic Review Family History of Problems with Anesthesia: No History of Problems with Anesthesia: No NPO: Yes ASA Class: III Final Preanesthetic Review: Meds/Allgs Chart Reviewed, Consent Obtained/Reviewed and Anes Risks/Benef Reviewed Patient Risk: Intermediate Procedure Risk: Low Anesthetic Plan Anesthetic Plan: MAC: Disposition: Standard PACU
[2024-11-30 13:27] VITALS: BP 121/62; PULSE 66; RESP 18; TEMP 36.2; O2SAT 99
--- NOTE | 2024-11-30 13:29 | PM.OP ---
Brief Operative Note Date of Service: 11/30/24 Pre-op diagnosis: Screening Post-op diagnosis: other (Colon polyp) Procedure: Colonoscopy to the cecum with cold snare polypectomy x 1 Surgeon: Steve Boggs MD Anesthesia: MAC Was an Cardiac Catheterization Technician used for this Procedure?: No Estimated blood loss (mL): 2.0 Pathology: other (A. Polyp at 50cm) Condition: stable Disposition: PACU
[2024-11-30 13:37] VITALS: BP 119/75; PULSE 62; RESP 18; O2SAT 99
--- NOTE | 2024-11-30 13:48 | HO.POSTANES ---
Post Anesthesia Evaluation Post Anesthesia Evaluation Date of Service: 11/30/24 Vital Signs: Vital Signs Temp Pulse Resp BP Pulse Ox O2 Del Method 11/30/24 13:37 62 18 119/75 99 Room Air 11/30/24 13:27 97.1 F 66 18 121/62 99 Room Air 11/30/24 11:39 98.2 F 83 18 131/77 98 Room Air Anesthesia: Monitored Mental Status: Awake Pain Control: Satisfactory Nausea/Vomiting: None Hydration: Adequate Anesthesia-Related Issues: No Anes. Related Issues
--- NOTE | 2024-11-30 14:06 | OP_ITS ---
DATE OF SERVICE: 11/30/2024 SURGEON: Steve Boggs MD INDICATIONS: The patient presents for followup of personal history of tubular adenoma of the colon and colorectal cancer screening. Full consent was obtained from him for this, including risks of bleeding and perforation. PREOPERATIVE DIAGNOSIS: POSTOPERATIVE DIAGNOSIS: PROCEDURE PERFORMED: Colonoscopy to the cecum with cold snare polypectomy. ESTIMATED BLOOD LOSS: COMPLICATIONS: ANESTHESIA: Monitored anesthesia care. ASSISTANTS: SPECIMENS: PREOPERATIVE DIAGNOSES: Colorectal cancer screening and personal history of tubular adenoma of the colon. POSTOPERATIVE DIAGNOSES: Small colon polyp, diverticulosis, and internal hemorrhoids. DESCRIPTION OF PROCEDURE: The patient was placed in the left lateral decubitus position. The digital rectal exam revealed no abnormalities. The Olympus video pediatric colonoscope was entered into the rectum and advanced easily to the cecum. Once in the cecum, I did identify normal-appearing cecal pouch with appendiceal orifice and a normal-appearing ileocecal valve. The entire cecum was well visualized and appeared normal. The scope was then slowly withdrawn assessing all mucosal surfaces carefully. Preparation was excellent. In the area of the hepatic flexure were what appeared to be some submucosal ink engel, but without any sign of polyp tissue in that area. At 50 cm, there was a flat, but raised approximately 5 mm polyp, which was removed by cold snare polypectomy and recovered by suction. The polypectomy site appeared clean, without any sign of residual polyp nor significant bleeding. I did not visualize any other polyps, colitis, nor angiodysplasia. There was a mild amount of sigmoid diverticulosis. In the rectum, scope was retroflexed visualizing internal hemorrhoids, but no other pathology. The rectal mucosa appeared normal. Scope was straightened and withdrawn from the patient. He tolerated the procedure well and was returned to the recovery area in stable condition. IMPRESSION: 1. Small colon polyp. 2. Diverticulosis. 3. Internal hemorrhoids. PLAN: The results of the pathology will be checked. Given his previous history, I would recommend a followup coloscopy in 3 years for further screening and surveillance. He will otherwise see me on a p.r.n. basis. MD LEBRON Allison/NATANAEL / [id number] MTDVanita
== END 2024-11-30 14:12 | disposition home or self-care (01) ==
LOC: HO.SSS 11:08
PROVIDERS: PCP Internal Medicine; Visit Provider Internal Medicine
PROC: 0DJD8ZZ Inspection of Lower Intestinal Tract, Via Natural or Artificial Opening Endoscopic (ICD-10-PCS; CPT 45378; principal; 2024-11-30 11:50)
DX: Z12.11 Encounter for screening for malignant neoplasm of colon (principal); D12.5 Benign neoplasm of sigmoid colon; K57.30 Diverticulosis of large intestine without perforation or abscess without bleeding; K64.8 Other hemorrhoids; Z86.0101 Personal history of adenomatous and serrated colon polyps; J45.909 Unspecified asthma, uncomplicated; K21.9 Gastro-esophageal reflux disease without esophagitis; F11.20 Opioid dependence, uncomplicated; F17.210 Nicotine dependence, cigarettes, uncomplicated; Z79.899 Other long term (current) drug therapy
CPT/HCPCS: 45385; 88305; J2003; J2704

== ENCOUNTER 2025-05-31 12:55 | Emergency (ER) | payer OTHER, SELFPAY ==
--- OUTSIDE RECORDS SUMMARY | 2024-11-30 06:50 | XMS_ITS ---
Author Organization [facility] Nadya Solomon Address [address] [place] [address] Care Team Providers Care Drum Straightener Name Role Phone Gabriel Burrows MD Primary Care Provider Steve Dela Cruz [phone] REASON FOR VISIT screening,hx polyps Encounters Encounter Location Date Provider Diagnosis [facility] Outpatient [address] [place], [place] [id number] 11/30/2024 Steve Boggs Colon cancer scree addi Z12.11 ; Personal history of adenomatous and serrated colon polyps Z86.0101 ; Colon polyps K63.5 and Diverticulosis of large intestine without perforation or abscess without bleeding K57.30 Assessments Encounter Date Diagnosis (ICD Code) Assessment Notes Treatment Notes Treatment Clinical Notes Section Notes 11/30/2024 Colon cancer screening (ICD-10 - Z12.11) 11/30/2024 Personal history of adenomatous and serrated colon polyps (ICD-10 - Z86.0101) 11/30/2024 Colon polyps (ICD-10 - K63.5) 11/30/2024 Diverticulosis of large intestine without perforation or abscess without bleeding (ICD-10 - K57.30) Plan Of Treatment No Information Progress Notes * CHINGTRISHA CHRISTENSENODOB: (65 yo M)Acc No.[id number]:11/30/2024 COLON WITH MAC Patient: MICAH MCKEON Provider: Oswald Boggs MD :1960 A ge:64 Y S ex:Male Date:11/30/2024 Address:[address] [place] [address] [place] [address] Pcp:Gabriel Burrows MD Subjective: * Chief Complaints: * S creening,hx polyps Assessment: * Assessment: 1. C olon cancer screening - Z12.11 (Primary) 2 . P ersonal history of adenomatous and serrated colon polyps - Z86.0101 3 . C olon polyps - K63.5 ? 4 . D iverticulosis of large intestine without perforation or abscess without bleeding - K57.30 Plan: * Procedure Codes: 4 5385 LESION REMOVAL COLONOSCOPY, Modifiers: PT * Preventive Medicine: SANTANA Screening: C olonoscopy W as interval between colonoscopies three years or more? N o due to Medical Reason, W as last colonoscopy performed three or more years ago? No due to Medical Reason, T en year follow-up for colonoscopy recommended? N o, R davide: M edical Reason, A denoma or other neoplasm detected during screening colonoscopy: Y es. Billing Information: * Procedure Codes: 55526 LESION REMOVAL COLONOSCOPY. Modifiers: PT * The named appointment provid er may or may not be the originator of this progress note, and it is not deemed complete until electronically signed by the appointment provider. Sign off status: Pending * Provider: Oswald Boggs MD Date: 0 11/30/2024 Generated for Fili skinner/Michelle/eTransmitting on: 08/01/2024 05:59 PM EST
--- NOTE | ~2025-05-31 | XR_ITS ---
EXAMINATION: XR LUMBOSACRAL SPINE CLINICAL INFORMATION: low back pain radiating down legs COMPARISON: June 28, 2021 CT abdomen and pelvis TECHNIQUE: Three views of the lumbosacral spine. FINDINGS: There are 5 nonrib-bearing lumbar segments with a sacralized L5 segment . There is stable chronic superior endplate compression fracture of L4. No other definite evidence of compression fracture is defined. L3-4 image is mild loss of disc height with small endplate osteophytes. L4-5: There is mild to moderate loss of disc height with vacuum phenomena and grade 1 retrolisthesis. XR/XR lumbar spine 2-3V IMPRESSION: Sacralized L5. Chronic L4 superior endplate compression fracture. Degenerative disc disease at L3-4 and L4-5. Electronically signed by: Demario Venegas MD 05/31/2025 01:38 PM YAJAIRA SWANSON
[2025-05-31 13:07] VITALS: BP 177/81; PULSE 78; RESP 18; TEMP 36.6; O2SAT 99; BMI 26.6
--- NOTE | 2025-05-31 13:18 | ED.GENADULT ---
HPI - General Adult General Chief complaint: Back Pain/Injury Stated complaint: Back Pain, Both Leg Pain Time Seen by Provider: 05/31/25 13:36 Source: patient Mode of arrival: ambulatory Limitations: no limitations History of Present Illness ED Provider: Waqas Whipple HPI narrative: 65 yold male with pmh of pancreatiits presents to the ED for low back pain radiating down legs. patient denies any IV drug use, immunocomprimised diseases, or urinay/bowel incontienence. Patient denies any trauma. Related Data Home Medications ?Medication ?Instructions ?Recorded ?Confirmed albuterol sulfate 90 mcg/actuation 2 inh inhalation QID PRN Wheezing 12/26/21 02/04/23 aerosol inhaler buprenorphine 8 mg-naloxone 2 mg 1 film sublingual DAILY 12/26/21 02/04/23 sublingual film montelukast 10 mg tablet 10 mg PO BEDTIME 12/26/21 12/27/21 bisacodyl 5 mg tablet,delayed 10 mg PO BID 02/01/23 02/01/23 release (Laxative (bisacodyl)) fluticasone fur. 100 mcg-umeclid inhalation DAILY 02/01/23 02/01/23 62.5 mcg-vilant 25 mcg inhalat.powder (Trelegy Ellipta) ibuprofen 800 mg tablet 800 mg PO Q8H PRN pain 02/01/23 02/01/23 montelukast 10 mg tablet 10 mg PO BEDTIME 02/01/23 02/01/23 omeprazole 20 mg capsule,delayed 20 mg PO DAILY 02/01/23 02/01/23 release psyllium husk 0.4 gram capsule g PO 02/01/23 trazodone 50 mg tablet 50 mg PO BEDTIME PRN Insomnia 02/01/23 02/01/23 Previous Rx's ?Medication ?Instructions ?Recorded acetaminophen 325 mg tablet 650 mg (2 x 325 mg) PO QID PRN 05/31/25 (Tylenol) pain 7 days #56 tabs lidocaine 5 % topical patch 1 patch topical DAILY #15 ea 05/31/25 prednisone 20 mg tablet 40 mg (2 x 20 mg) PO DAILY 5 days 05/31/25 #10 tabs Allergies Allergy/AdvReac Type Severity Reaction Status Date / Time aspirin (ASPIRIN) Allergy Intermediate RASH/GI Verified 05/31/25 13:09 UPSET Review of Systems Review of Systems: low back pain Yes all other systems are reviewed and are negative [facility] Past Medical History Medical History Hepatitis C Bronchitis Asthma Substance abuse Abnormal colonoscopy Hiatal hernia GERD (gastroesophageal reflux disease) Pancreatitis ETOH abuse Surgical History H/O umbilical hernia repair Social History Social History Household Members: None Housing: Apartment Are you a primary career services officer to a significant other at home: No Do you presently have visiting nurse or other home services: No Alcohol intake: current Alcohol intake frequency: a few times a week Patient Tobacco Use Status: Current everyday Tobacco user Tobacco use type: Cigarette Smoked in Last 30 Days: Yes e-Cigarette/Vaping Use: Never Used Second Hand Smoke Exposure: No Use of substances other than those prescribed or required for medical reasons: No Advance Directives: No Advance Directives Information Provided: Yes Do you have a plan to hurt others: No Plan service: No Current occupational status: retired Physical Exam ED Vital Signs: Vital Signs - 24 hr 05/31/25 13:07 Temperature 98 F Pulse Rate 78 Respiratory Rate 18 Blood Pressure 177/81 H Pulse Oximetry 99 Oxygen Delivery Method Room Air BMI result Body Mass Index 26.6 Const General: cooperative, healthy appearing, comfortable, no acute distress, well developed, alert, awake and Physically active Orientation/consciousness: patient oriented x3 HENMT Head: Yes normal to inspection, Yes No palpable skull fracture present, Yes normocephalic and Yes atraumatic Eyes General: appearance normal, both eyes and all related structures Neck Neck: Yes normal visual inspection, Yes full ROM, Yes no lymphadenopathy, Yes no meningeal signs, Yes trachea midline, Yes supple, No anterior neck swelling and No tender Chest Chest palpation & inspection: normal inspection of the chest and normal palpation of entire chest wall Resp Effort & Inspection: normal respiratory effort and able to speak in complete sentences Auscultation: clear to auscultation bilaterally Cardio Jugular venous distension: no JVD Heart sounds: S1 normal heart sound present and S2 normal heart sound present GI Inspection: Yes normal to inspection Palpation (GI): Soft to palpation, not firm, nontender, no guarding and not rigid Back/Spine/Pelvis Back: back tenderness (lumbar spine tenderness) Skin General skin exam: no rashes or lesions noted, elasticity normal and turgor normal Neuro General: patient oriented x3, gait normal, tone normal, moves all extremities, Normal light touch and pain sensation, no meningeal signs, no focal motor deficits, CN's II-XI intact bilaterally and normal sensation to monofilament Extrem General: Yes normal to inspection, Yes full ROM and Yes capillary refill normal Psych Appearance: grossly normal, well kempt and not disheveled Course Course Course Narrative: RME: 65 yold male presents to the ED for low back pain radiating down both legs without any injury. No help with [id number] pain medication. Patient denies any genitourinary symptoms. X-ray ordered Medical Decision Making Medical Decision Making MDM Narrative: [age] year male presents to ED for low back pain without any trauma. Patient denies history of IV drug use or immunocompromise diseases. X-ray shows chronic compression fracture and lumbar radiculopathy. Patient has no genitourinary symptoms. Patient is discharged with pain medication. Not suspecting epidural abscess, compartment syndrome, osteomylitits, dislocation, or any other life threatenign etiolgoies. Differential Diagnosis Differential Diagnoses: The differential diagnosis associated with the presentation includes (Fracture, radiculopathy) Admission/Observation Consideration of admission/observation: Escalation of care including admission/observation considered Independent Interpretation I performed an independent interpretation of an: Plain X-Ray Radiology Impression Discussion of test interpretation with radiology: I have reviewed the radiologist's reading. Independent Historian Clinical information obtained from an independent historian. History obtained from or confirmed by: Other (patient) Prescription Management I considered prescription management with: Pain Medication Discharge Plan Discharge Clinical Impression: Lumbar radiculopathy Patient Disposition: Home, Self-Care Instructions: Lumbar Radiculopathy (ED), Lower Back Exercises (ED) Additional Instructions: Recommend follow up with PCP and SPinal specialist. Return to the ED for any urinary/bowel incontinence, severe back pain, abdominal pain, nausea, vomiting, fever, chills, flank pain, testicular pain paralysis of lower extremity, abdominal/tingling in or genital area legs, or any other concerning symptoms. Prescriptions: New prednisone 20 mg tablet 40 mg PO DAILY 5 Days Qty: 10 0RF lidocaine 5 % adhesive patch,medicated 1 patch topical DAILY Qty: 15 0RF Rx Instructions: leave on most painful area for up to 12 hrs acetaminophen [Tylenol] 325 mg tablet 650 mg PO QID PRN (Reason: pain) 7 Days Qty: 56 0RF No Action trazodone 50 mg tablet 50 mg PO BEDTIME PRN (Reason: Insomnia) ibuprofen 800 mg tablet 800 mg PO Q8H PRN (Reason: pain) omeprazole 20 mg capsule,delayed release(DR/EC) 20 mg PO DAILY montelukast 10 mg tablet 10 mg PO BEDTIME bisacodyl [Laxative (bisacodyl)] 5 mg tablet,delayed release (DR/EC) 10 mg PO BID psyllium husk 0.4 gram capsule PO Trelegy Ellipta 100-62.5-25 mcg blister with device INHALATION DAILY buprenorphine-naloxone 8-2 mg film 1 film sublingual DAILY albuterol sulfate 90 mcg/actuation HFA aerosol inhaler 2 inh inhalation QID PRN (Reason: Wheezing) montelukast 10 mg tablet 10 mg PO BEDTIME Referrals: Gabriel Burrows III, MD [Primary Care Provider, Medical] - 2 days Referral Note: Back pain. Lumbar radiculopathy Clinical Impression: Lumbar radiculopathy Price Linares MD, PhD [Physician, Neuro Spine] - 2 days Referral Note: Lumbar radiculopathy. Chronic compression fracture Clinical Impression: Lumbar radiculopathy Interventions: ED Discharge Assessment Last Done: 05/31/25 14:49 Discharge Date/Time: 05/31/25 14:50 Print Language: Scottish
[2025-05-31 14:40] VITALS: BP 139/88; PULSE 58; RESP 20; O2SAT 98
[2025-05-31 14:49] VITALS: BP 139/88; PULSE 58; RESP 20; TEMP -17.7; TEMP 0; O2SAT 98
--- OUTSIDE RECORDS SUMMARY | 2025-05-31 18:00 | XMS_ITS | Clinical Summary ---
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 Name Role Phone Unavailable Primary Care Provider Unavailabl e Social History Tobacco Use Types Packs/Day Years Used Date Smoking Tobacco: Never Assessed Sex and Gender Information Value Date Recorded Sex Assigned at Male 04/09/2022 10:16 AM EDT Legal Sex Male 10:16 AM EDT Gender Identity Male 04/09/2022 10:16 AM EDT Sexual Orientation Choose not to disclose 2021 10:16 AM EDT Plan of Treatment Health Maintenance Due Date Last Done Comments CT Colonography 1961 Colonoscopy 1961 Colorectal Cancer Screening 1961 Depression Screening 1961 FIT DNA/Cologuard 1961 FIT 1961 FOBT 1961 HIV Screening 1961 Lipid Panel 1961 SDOH Screening 1961 Sigmoidoscopy 1961 Disability Screening 1961 Alcohol/Substance Use Screening 1973 Tobacco Screening 1973 Hepatitis C Screening 1979 Zoster Vaccines (1 of 2) 2011 Pneumococcal Vaccine: 50+ Years (2 of 2 - PCV) 12/05/2018 12/05/2017 COVID-19 Vaccine ( - season) 2025 05/03/2023, 07/04/2021, 11/10/2020 Influenza Vaccine (#1) 2025 , 02/21/2022, 01/26/2019, Additional history exists DTaP/Tdap/Td Vaccines (2 - Td or Tdap) 06/18/2026 06/18/2016 RSV Patients and Patients Aged 60 years or older (1 - 1-dose 75+ series) 02/08/2036 HIB Vaccines Aged Out No longer eligi ble based on patient's age to complete this topic HPV Vaccines Aged Out No longer eligi ble based on patient's age to complete this topic Hepatitis A Vaccines Aged Out No long er eligible [...] patient's age to complete this topic Meningococcal Vaccine Aged Out No didier elizabeth eligible based on patient's age to complete this topic RSV under 20 months Aged Out No longe r eligible based on patient's age to complete this topic Rotavirus Vaccines Aged Out No longer eligible based on patient's age to complete this topic Insurance [facility] < 65
--- OUTSIDE RECORDS SUMMARY | 2025-05-31 18:00 | XMS_ITS | Patient Health Record ---
Author Organization [facility] Address [address] [place] [address] Care Team Providers Care A Operator Name Role Phone Gabriel Burrows MD Primary Care Provider Steve Dela Cruz [phone] Allergies Allergen (clinical drug ingredient) Drug/Non Drug Allergy documented on EMR Reaction Allergy Type Onset Date Status aspirin Aspirin rash Drug Allergy Active Results Component Value Reference Range Notes Pathology Reviewed date:01/04/2025 06:33:28 PM Interpretation: Performing Lab:[facility], [address] [place] [phone] Notes/Report: Reason For Referral No Information Medications Medication SIG (Take, Route, Frequency, Duration) Notes Start Date End Date Status Psyllium Fiber 0.52 GM Capsule TAKE 2 CAPSULES WITH 8 OZ OF LIQUID ONCE OR TWICE A DAY ON A REGULAR BASIS TO HELP W/ CONSTIPATION; Duration: 30 Active Dulcolax (colon prep) 5 MG Tablet Delayed Release take at 3:00 p.m and 7:00p.m. Orally two tablets twice a day for one day; Duration: 1 days 09/16/2024 Active Reguloid 0.52 GM Capsule TAKE 2 CAPSULES WITH 8 OZ OF LIQUID ONCE OR TWICE A DAY ON A REGULAR BASIS TO HELP W/ CONSTIPATION; Duration: 30 Active MiraLax (colon prep) 17 GM/SCOOP Powder 1 238 Gm bottle mixed with Gatorade or Crystal Light orally begin at 5:00 p.m. the day before the procedure; Duration: 1 days 09/16/2024 Active Montelukast Sodium 10 MG Tablet Oral; Duration: 90 Days Acti ve traZODone HCl 50 MG Tablet Oral; Duration: 30 Days Active Zoloft Active Psyllium Fiber 2 CAPSULES WITH 8 OU NCES OF WATER ONCE OR TWICE A DAY ON A REGULAR BASIS TO HELP W/ CONSTIPATION Orally Twice a day; Duration: 30 days Active [employer] Fiber 0.52 GM Capsule TAKE 2 CAPSULE S WITH 8 OZ OF LIQUID ONCE OR TWICE A DAY ON A REGULAR BASIS TO HELP W/ CONSTIPATION Oral; Duration: 30 Days Active Albuterol Active ProAir HFA Active Symbicort Active Omeprazole Active Suboxone Active Social History Tobacco Use: Social History Observation Description Date Details (start date - stop date) Current Smoker NA - NA Social History Drugs/Alcohol: Social Info Question Answer Notes Alcohol Screen Did you have a drink containing alcohol in the past year? Yes How often did you have a drink containing alcohol in the past year? 2 to 3 times a week (3 points) How many drinks did you have on a typical day when you were drinking in the past year? 3 or 4 drinks (1 point) Points 4 Interpretation Positive Tobacco Use: Social Info Question Answer Notes Tobacco Use/Smoking Patient is a current smoker How often do you smoke cigarettes? every day How many cigarettes a day do you smoke? 5 or less Additional Details Category Social Info Options Details Miscellaneous: Marital status: single Occupation: unemployed/ss Section Notes: Nonsmoker x 1 month, 2-3 [...] Problem Status W/U Status Risk Notes Problem Screening for malignant neoplasm of colon (678125338) Encounter for screening for malignant neoplasm of colon (Z12.11) Active confirmed Problem History of adenomatous polyp of colon (337839494) History of adenomatous polyp of colon (Z86.010) Active confirmed Problem Constipation (99780866) Constipation, unspecified constipation type (K59.00) Active confirmed Problem Gastroesophageal reflux disease (336721156) GERD without esophagitis (K21.9) Active confirmed Problem Diverticulosis of colon (493197839) Diverticulosis of colon (K57.30) Active confirmed Vital Signs Blood pressure diastolic 11 mm Hg 09/10/2024 Height 68 in 09/10/2024 Blood pressure systolic 111 mm Hg 09/10/2024 Weight 170 lbs 09/10/2024 BMI 25.85 kg/m2 09/10/2024 Procedures Procedure Date Ordered Date Performed Result Body Sit e COLONOSCOPY 09/10/2024 N/A Encounters Encounter Location Date Provider Diagnosis [facility] [address] [id number] 11/30/2024 Steve Boggs Colon cancer screeni ng Z12.11 ; Personal history of adenomatous and serrated colon polyps Z86.0101 ; Colon polyps K63.5 and Diverticulosis of large intestine without perforation or abscess without bleeding K57.30 [facility] [address] [facility] [address] [place] [phone] 09/10/2024 Steve Boggs History of adenomato us polyp of colon Z86.010 ; GERD without esophagitis K21.9 ; Encounter for screening for malignant neoplasm of colon Z12.11 and Constipation, unspecified constipation type K59.00 [facility] [address] [place] [phone] 09/10/2024 Steve Boggs [facility] [address] [facility] [address] [phone] 01/01/2025 Steve Boggs Assessments Encounter Date Diagnosis (ICD Code) Assessment Notes Treatment Notes Treatment Clinical Notes Section Notes 11/30/2024 Colon cancer screening (ICD-10 - Z12.11) 11/30/2024 Personal history of adenomatous and serrated colon polyps (ICD-10 - Z86.0101) 09/10/2024 History of adenomatous polyp of colon [...] again for allowing me to participate in [facility]. I shall continue to keep you [...] again for allowing me to participate in [facility]. I shall continue to keep you [...] to keep you advised of his progress. 11/30/2024 Colon polyps (ICD-10 - K63.5) 11/30/2024 Diverticulosis of large intestine without perforation or abscess without bleeding (ICD-10 - K57.30) 09/10/2024 Constipation, unspecified constipation type (ICD-10 - [...] again for allowing me to participate in [facility]. I shall continue to keep you advised of his progress. Plan Of Treatment Pending Test Test Name Order Date COLONOSCOPY 09/10/2024 Future Test Test Name Order Date COLONOSCOPY 06/12/2012 UPPER GI ENDOSCOPY 04/02/2017 COLONOSCOPY 04/02/2017 COLONOSCOPY 11/15/2022 Insurance Providers Payer Name Payer Address Payer Phone Subscriber Number Group Number Insured Name Patient Relationship to Insured Coverage Start Date Coverage End Date [facility] [address] Attn Claims [place] [id number] TRISHA CHINGO Self - patient is the insured Medical (General) History Medical History History ICD Code Positive Hepatitis C antibod y-had a nondetectable Hep C RNA in 03/2001 and in May of 2012, and neg. Hep B surface antigen also Substance abuse Asthma/bronchitis Denies MD,DM,CVA,renal disease Colonoscopy in July 013 with removal of small tubular adenomas, and [...]
--- OUTSIDE RECORDS SUMMARY | 2025-05-31 18:00 | XMS_ITS | Clinical Summary ---
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 024 Active fluticasone propionate (FLONASE) 50 mcg/actuation nasal spray 2 Sprays by Nasal route daily. 023 Active buprenorphine-na loxone (SUBOXONE) 8-2 mg per SL film TAKE 1 FILM SUBLINGUALLY EVERY DAY 023 Active montelukast (SINGULAIR) 10 mg tabletIndication s:Moderate persistent asthma, uncomplicated,Ni cotine dependence, cigarettes, uncomplicated TOME 1 TABLETA POR VIA ORAL TODOS [place] AL ACOSTARSE 90 tablet 3 025 Active omeprazole (PriLOSEC) [address] capsule Take 1 capsule (20 mg total) by mouth 1 (one) time each day. 90 capsule 1 025 Active traZODone (DESYREL) 50 mg tablet Take 1 tablet (50 mg total) by mouth at bedtime. 90 tablet 1 025 Active albuterol HFA (PROAIR HFA ; PROVENTIL HFA ; VENTOLIN HFA) 90 mcg/actuation inhaler Inhale 2 puffs by mouth every 4 (four) hours if needed for wheezing. 6.7 g 1 025 Active Breo Ellipta 100-25 mcg/dose inhaler INHALE UN SOPLIDO POR VIA ORAL INTO THE LUNGS TODOS [place] 60 each 11 025 Active ibuprofen (ADVIL,MOTRIN) 800 mg tablet TOME 1 TABLETA POR VIA ORAL CADA 8 HORAS CUANDO SEA NECESARIO FOR MILD PAIN 90 tablet 1 025 Active ibuprofen (ADVIL,MOTRIN) 800 mg tablet TAKE 1 TABLET BY MOUTH EVERY 8 HOURS IF NEEDED FOR MILD PAIN. 90 tablet 2 025 2024 Discontinued Active Problems Problem Noted Date Diagnosed Date Asthma 06/09/2024 Depression 06/09/2024 Opioid abuse 06/09/2024 Fatty liver 04/03/2022 Emphysema of lung 04/02/2019 Pulmonary nodule 04/02/2019 Overview (06/09/2024): Low Dose CT: 03/02/21: Stable. Repeat 1 year. Allergic rhinitis 01/05/2019 Insomnia 05/29/2018 Positive hepatitis C antibody test 10/05/2016 GERD (gastroesophageal reflux disease) 4 Overview (06/09/2024): Good control with PPI once a day. Encounters Date Type Department Care Team Description 05/04/2025 5:06 PM EST - 05/04/2025 11:59 PM EST Hospital Encounter [facility] CT Scan [address] [place] [address] Multiple pulmonary nodules Discharge Disposition: Home or Self Care 04/13/2025 Telephone Lung Screening Program - [place] [address] [facility] [address] [place] [phone] Diana Starr MA from Last 3 Months Immunizations Immunization Administration Dates Next Due Influenza Quadravalent, MDCK , 0.5ml, preservative free (Flucelvax) 6mo and older 03/01/2023,02/21/2022 Influenza Quadravalent, MDCK , 0.5ml, with preservative (Flucelvax) 6mo and older 03/26/2017 Influenza trivalent, 0.5mL, preservative free (Fluarix; FluLaval; Fluzone) ages 6mo and older (Afluria) 3 years and older 06/18/2016,03/23/2014 [employer] SARS-CoV-2 COVID -19, vector-nr, rS-Ad26, preservative free 11/10/2020 [place] SARS-CoV-2 COVID-19, mRNA, LNP-S, preservative free 07/04/2021 Pneumococcal polysaccharide 23 valent (Pneumovax 23) 2yo and older 12/05/2017 Tdap Tetanus diptheria acell ular pertussis (Boostrix; Adacel) 7yo and older 06/18/2016 Surgical History Surgery Date Site/Laterality Comments COLONOSCOPY PROCEDURE: HISTORICAL COLONOSCOPY; COMMENT: [facility] on 8 where patient had hiatal hernia, colon polyps, [...] Smoking Tobacco: Every Day Smokeless Tobacco: Never Tobacco Cessation:Ready to Q uit: Not Asked; Counseling Given: Not Answered Alcohol Use Standard Drinks/Week Comments Yes 0 (1 standard drink = 0.6 oz pur e alcohol) Sex and Gender Information Value Date Recorded Sex Assigned at Male 01/19/2025 9:59 PM EDT Legal Sex Male 2:16 AM EST Gender Identity Not on file Sexual Orientation Not on file Last Filed Vital Signs Vital Sign Reading Time Taken Comments Blood Pressure 122/76 11/27/2024 9:54 AM EDT Pulse 88 11/27/2024 9:54 AM EDT Temperature 37 C (98.6 F) 11/27/2024 9:54 AM EDT Respiratory Rate - - Oxygen Saturation 96% 11/27/2024 9:54 AM EDT Inhaled Oxygen Concentration - - Weight 78 kg (172 lb) 11/27/2024 9:54 AM EDT Height 172.7 cm (5' 7.99 ) 11/27/2024 9:54 AM ED T Body Mass Index 26.16 11/27/2024 9:54 AM EDT Plan of Treatment Upcoming Encounters Date Type Department Care Team (Late st Contact Info) Description 06/30/2025 9:00 AM EST Office Visit Adult Medicine [facility] [address] [place] [phone] Gabriel Burrows MD [address] [place] [phone] Health Maintenance Due Date Last Done Comments Hepatitis A Vaccines (1 of 2 - Risk 2-dose series) 02/08/1980 Pneumococcal Vaccine: 50+ Years (2 of 2 - PCV) 12/05/2018 12/05/2017 HIV Screening 05/19/2022 Medicare Annual Wellness Visit 05/19/2022 Social Influencers of Health Screening 05/19/2022 Depression Screening 06/10/2024 09/05/2023 COVID-19 Vaccine ( season) 2025 07/10/2024, 05/03/2023, 07/04/2021, Additional history exists DTaP,Tdap,and Td Vaccines (2 - Td or Tdap) 06/18/2026 06/18/2016 Cholesterol Screening (Lipid Panel) 09/16/2028 09/17/2023 Colorectal Cancer Screening: Colonoscopy 11/30/2034 11/30/2024, 07/22/2017 Hepatitis C Screening Completed 10/02/2016 Zoster Vaccines Completed 07/15/2024, 05/13/2024 Influenza Vaccine Completed 02/12/2025, , 03/01/2023, Additional history exists RSV Immunization Adult Patients Completed 02/12/2025 HIB Vaccines Aged Out No longer eligi [...] Procedure Name Priority Date/Time Associated Diagnosis Comments CT CHEST WO CONTRAST (LUNG-RADS F/U) Routine 05/04/2025 5:17 PM EST Multiple pulmonary nodules LIPID PANEL Routine 09/17/2023 DEPRESSION SCREENING Routine 09/05/2023 COLONOSCOPY Routine 07/22/2017 HEPATITIS C SCREENING Routine 10/02/2016 from Last 3 Months or Most Recently Relevant to Health Maintenance Results * CT Chest wo Contrast (Lung-RADS F/U) (05/04/2025 5:17 PM EST) Anatomical Region Laterality Modality Body Computed Tomogra phy 05/14/2025 1:29 PM EST Impressions 05/14/2025 1:42 PM EST Interval improvement/resolution of previously demonstrated abnormalities. No suspicious residual or new findings. LUNG RADS: Lung-RADS 2: BENIGN S Modifier (Significant or Potentially Significant Findings): None present No suspicious nonpulmonary findings. RECOMMENDATIONS: 12 month screening low dose CT -------- FINAL REPORT -------- Dictated By: Reynaldo Linn Dictated Date: 05/14/2025 13:29 ET Assigned Physician: Reynaldo Linn Reviewed and Electronically Signed By: Reynaldo Linn Signed Date: 05/14/2025 13:42 ET Workstation ID: [id number] Transcribed By: Self Edit Transcribed Date: 05/14/2025 13:29 ET Narrative 05/14/2025 1:42 PM EST EXAMINATION: CT CHEST WITHOUT CONTRAST LUNG CANCER SCREENING, LOW DOSE CLINICAL INFORMATION: Abnormal lung cancer screening CT. Evaluate for short interval change COMPARISON: Portions of previous 02/01/25 TECHNIQUE: Multidetector CT. Examination of the chest. Examination of the chest without IV contrast. Reformatting in the coronal and sagittal planes. Device: ttwickT DLP: 173 mGy-cm CTDI: 4.83 Dose optimization was performed including the use of low-dose iterative reconstruction technique with automatic exposure control based on patient size. Type of contrast: None Volume of IV contrast: None Volume of contrast discarded: 0 mL FINDINGS: LUNG: No suspicious abnormality of the trachea or mainstem bronchi. There are secretions at the ramos and within the left mainstem bronchus. LUNG NODULES: The semisolid nodules in the central aspect the left upper lobe with some adjacent tree-in-bud opacity have essentially resolved. There is no residual measurable suspicious mass or nodule. The linear peripheral opacity and adjacent tree-in-bud opacities in the superior segment left lower lobe have resolved. OTHER PULMONARY: There are a few unchanged scattered micronodules. No significant interstitial lung abnormalities. Minor reticular opacities greatest in the posteromedial right lower lobe. MEDIASTINUM: There are no enlarged mediastinal or hilar lymph nodes. No suspicious abnormalities of the esophagus. CARDIAC: There is no cardiac mass. No significant pericardial fluid or thickening. There are mild coronary calcifications. VASCULAR: There is no thoracic aortic aneurysm. The main pulmonary artery is normal caliber. PLEURA: There is no pleural fluid or pneumothorax. AXILLA/CHEST WALL: There are no enlarged axillary lymph nodes. No chest wall mass demonstrated. VISUALIZED UPPER ABDOMEN: No suspicious abnormality on limited assessment of the visualized upper abdomen. MUSCULOSKELETAL: No suspicious focal bony lesion demonstrated. Procedure Note Reynaldo Linn MD - 05/14/2025 EXAMINATION: CT CHEST WITHOUT CONTRAST LUNG CANCER SCREENING, LOW DOSE CLINICAL INFORMATION: Abnormal lung cancer screening CT. Evaluate for short interval change COMPARISON: Portions of previous 02/01/25 TECHNIQUE: Multidetector CT. Examination of the chest. Examination of the chest without IV contrast. Reformatting in the coronal and sagittal planes. Device: Lightspeed VCT DLP: 173 mGy-cm CTDI: 4.83 Dose optimization was performed including the use of low-dose iterativereconstruction technique with automatic exposure control based on patientsize. Type of contrast: None Volume of IV contrast: None Volume of contrast discarded: 0 mL FINDINGS: LUNG: No suspicious abnormality of the trachea or mainstem bronchi.There are secretions at the ramos and within the left mainstembronchus. LUNG NODULES: The semisolid nodules in the central aspect the left upper lobe with someadjacent tree-in-bud opacity have essentially resolved. There is noresidual measurable suspicious mass or nodule. The linear peripheral opacity and adjacent tree-in-bud opacities in thesuperior segment left lower lobe have resolved. OTHER PULMONARY: There are a few unchanged scattered micronodules. No significant interstitial lung abnormalities. Minor reticular opacitiesgreatest in the posteromedial right lower lobe. MEDIASTINUM: There are no enlarged mediastinal or hilar lymph nodes. Nosuspicious abnormalities of the esophagus. CARDIAC: There is no cardiac mass. No significant pericardial fluid orthickening. There are mild coronary calcifications. VASCULAR: There is no thoracic aortic aneurysm. The main pulmonary arteryis normal caliber. PLEURA: There is no pleural fluid or pneumothorax. AXILLA/CHEST WALL: There are no enlarged axillary lymph nodes. No chestwall mass demonstrated. VISUALIZED UPPER ABDOMEN: No suspicious abnormality on limited assessmentof the visualized upper abdomen. MUSCULOSKELETAL: No suspicious focal bony lesion demonstrated. IMPRESSION: Interval improvement/resolution of previously demonstratedabnormalities. No suspicious residual or new findings. LUNG RADS: Lung-RADS 2: BENIGN S Modifier (Significant or Potentially Significant Findings): Nonepresent No suspicious nonpulmonary findings. RECOMMENDATIONS: 12 month screening low dose CT -------- FINAL REPORT -------- Dictated By: Reynaldo Linn Dictated Date: 05/14/2025 13:29 ET Assigned Physician: Reynaldo Linn Reviewed and Electronically Signed By: Reynaldo Linn Signed Date: 05/14/2025 13:42 ET Workstation ID: [id number] Transcribed By: Self Edit Transcribed Date: 05/14/2025 13:29 ET Marina LEUNG IMG CT PROCEDURES Final Resul t * Lipid panel (09/17/2023) [facility] LDL/HDL Ratio 2 0 - 4 Triglycerides 58 0 - 150 mg/dL Cholesterol 157 0 - 200 mg/dL HDL 92 >=40 mg/dL LDL Cholesterol 54 0 - 100 mg/dL Blood Venous blood specimen / Unknown Result [facility] Historical Provider LAB BLOOD ORDERABLES Lily l Result * Depression Screening (09/05/2023) [facility] Depression Screening abstracted Result [facility] Provider HEALTH MAINTENANCE Final Result * Colonoscopy (07/22/2017) [facility] Colonoscopy no interpretation , abstracted Anatomical Region Laterality Modality Other Result [facility] Provider HEALTH MAINTENANCE Final Result * Hepatitis C Screening (10/02/2016) [facility] Hepatitis C Screening abstracted [facility] Provider HEALTH MAINTENANCE Final Result from Last 3 Months or Most Recently Relevant to Health Maintenance Insurance MEDICARE Member Subscriber Plan / Payer (Ef fective 2019-Present) Name:REDD [place] Relation to Subscriber:Self Name:Redd [place] Payer ID:[id number] Group ID:[id number] Type:Not on file Address: [place] [facility] [place] [address] Care Teams 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
--- OUTSIDE RECORDS SUMMARY | 2025-05-31 18:00 | XMS_ITS | Encounter Summary ---
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 Name Role Phone Unavailable Primary Care Provider Unavailabl e Reason for Visit * Reason Onset Date Comments New Patient 01/04/2023 Encounter Details Date Type Department Care Team ([facility] Contact Info) Description 01/04/2023 Telephone [facility] [address] [place] [address] Cheko Camejo MD [address] [place] [address] New Patient Social History Tobacco Use Types Packs/Day Years Used Date Smoking Tobacco: Never Assessed Sex and Gender Information Value Date Recorded Sex Assigned at Male 04/09/2022 10:16 AM EDT Legal Sex Male 10:16 AM EDT Gender Identity Male 04/09/2022 10:16 AM EDT Sexual Orientation Choose not to disclose 2021 10:16 AM EDT documented as of this encounter Miscellaneous Notes * Telephone Encounter - Monika Cotto - 01/23/2023 11:33 AM EDT 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 EFFECTIVE SINCE 01/04/2023 * Telephone Encounter - Monika Cotto - 01/04/2023 3:16 PM EDT New Patients Par Monika Batres called to start process of becoming a New patient appt, pt did notanswer left voicemail to give a call at [phone]. documented in this encounter Plan of Treatment Not on file documented as of this encounter Visit Diagnoses Not on filedocumented in this encounter
== END 2025-05-31 14:50 | disposition home or self-care (01) ==
PROVIDERS: Emergency Provider Emergency Medicine Emergency Medical Services; PCP Internal Medicine
DX: M54.16 Radiculopathy, lumbar region (principal); K21.9 Gastro-esophageal reflux disease without esophagitis; F17.200 Nicotine dependence, unspecified, uncomplicated; Z71.6 Tobacco abuse counseling
CPT/HCPCS: 72100; 99283; 99284

== ENCOUNTER → 2025-05-31 13:19 | Outpatient (BNV) | payer OTHER, SELFPAY | PROVIDERS: Emergency Provider Emergency Medicine Emergency Medical Services; PCP Internal Medicine; Visit Provider Radiology Diagnostic Radiology | DX: S32.040A Wedge compression fracture of fourth lumbar vertebra, initial encounter for closed fracture (principal); M51.360 Other intervertebral disc degeneration, lumbar region with discogenic back pain only | CPT/HCPCS: 72100 ==